=== PATIENT | male | born 1970 | race Caucasian/White ===

== ENCOUNTER 2017-02-28 22:50 | Emergency (ER) | payer OTHER ==
[~2017-02-28] VITALS: Ht 167.6 cm; Wt 70.0 kg
[~2017-02-28 22:50] MED LIST: CEPH500C3 PO; CLON-352 PO; SUBO2MIS SL
[2017-02-28 22:51] VITALS: BP 176/112; PULSE 116; RESP 16; TEMP 98.6; O2SAT 100
[2017-02-28] MEDS ORDERED: SUBO8MIS SL (23:07)
[2017-02-28] MEDS ORDERED: CLON0.3T PO (23:07)
--- NOTE | 2017-02-28 23:27 | PD ---
HPI Chief Complaint: Medical Clearance Time Seen by Provider: 23:18 Travel History International Travel<30 days: No Contact w/Intl Traveler<30days: No Traveled to known affect area: No History of Present Illness HPI 46-year-old male presents to the department for medical clearance to go into a detox facility. Patient recently went on a alcohol binge. He fell struck his head and was placed under Chan act. He did go to a detox facility and was discharged today. His father accompanies him and the family feels that is in his best interest to continue detox and get off Suboxone now. The patient states that he does want to do this however he is scared. They went to [facility] and they are saving him a bed but requested he come to emergency department or medical clearance. Patient denies suicidal homicidal ideations. He takes 8 mg of Suboxone in the morning and 4 mg at night. Denies any other illicit drug use currently. States that he has not consumed alcohol for 1 week , prior to his recent admission. He has no other symptoms to report. [facility] Past Medical History Hypertension: Yes Tetanus Vaccination: Unknown Influenza Vaccination: No Social History Alcohol Use: Yes (binges) Tobacco Use: No Substance Use: No Allergies-Medications (Allergen,Severity, Reaction): Coded Allergies: No Known Allergies (Unverified , 02/28/17) Reported Meds & Prescriptions Reported Meds & Active Scripts Active Reported Suboxone Sublingual Film (Buprenorphine-Naloxone Sublingual Film) 8-2 Mg Film 1 Film SL BID Unique ID number required: Clonidine (Clonidine HCl) 0.3 Mg Tab 0.3 Mg PO BID Review of Systems Except as stated in HPI: all other systems reviewed are Neg Physical Exam Narrative GENERAL: Well-nourished, very pleasant male patient, anxious, but in no acute distress. SKIN: Focused skin assessment warm/dry. HEAD: Atraumatic. Normocephalic. EYES: Pupils equal and round. No scleral icterus. No injection or drainage. ENT: No nasal bleeding or discharge. Mucous membranes pink and moist. NECK: Trachea midline. No JVD. CARDIOVASCULAR: Tachycardic rate and rhythm. No murmur appreciated. RESPIRATORY: No accessory muscle use. Clear to auscultation. Breath sounds equal bilaterally. GASTROINTESTINAL: Abdomen soft, non-tender, nondistended. Hepatic and splenic margins not palpable. MUSCULOSKELETAL: No obvious deformities. No clubbing. No cyanosis. No edema. NEUROLOGICAL: Awake and alert. No obvious cranial nerve deficits. Motor grossly within normal limits. Normal speech. Data Data Last Documented VS Vital Signs Date Time Temp Pulse Resp B/P (MAP) Pulse Ox O2 Delivery O2 Flow Rate FiO2 03/01/17 00:02 02/28/17 22:51 98.6 116 16 100 Room Air Orders Orders Complete Blood Count With Diff (02/28/17 23:18) Basic Metabolic Panel (Bmp) (02/28/17 23:18) Drug Screen, Random Urine (02/28/17 23:18) Alcohol (Ethanol) (02/28/17 23:18) Labs Laboratory Tests Test 02/28/17 23:20 White Blood Count 7.7 TH/MM3 Red Blood Count 4.20 MIL/MM3 Hemoglobin 14.5 GM/DL Hematocrit 41.0 % Mean Corpuscular Volume 97.5 FL Mean Corpuscular Hemoglobin 34.5 PG Mean Corpuscular Hemoglobin Concent 35.3 % Red Cell Distribution Width 17.2 % Platelet Count 160 TH/MM3 Mean Platelet Volume 9.1 FL Neutrophils (%) (Auto) 67.9 % Lymphocytes (%) (Auto) 19.3 % Monocytes (%) (Auto) 10.8 % Eosinophils (%) (Auto) 1.4 % Basophils (%) (Auto) 0.6 % Neutrophils # (Auto) 5.3 TH/MM3 Lymphocytes # (Auto) 1.5 TH/MM3 Monocytes # (Auto) 0.8 TH/MM3 Eosinophils # (Auto) 0.1 TH/MM3 Basophils # (Auto) 0.0 TH/MM3 CBC Comment DIFF FINAL Differential Comment Blood Urea Nitrogen 13 MG/DL Creatinine 0.94 MG/DL Random Glucose 115 MG/DL Calcium Level 9.3 MG/DL Sodium Level 140 MEQ/L Potassium Level 4.3 MEQ/L Chloride Level 102 MEQ/L Carbon Dioxide Level 31.8 MEQ/L Anion Gap 6 MEQ/L Estimat Glomerular Filtration Rate 87 ML/MIN Urine Opiates Screen NEG Urine Barbiturates Screen NEG Urine Amphetamines Screen NEG Urine Benzodiazepines Screen NEG Urine Cocaine Screen NEG Urine Cannabinoids Screen NEG Ethyl Alcohol Level LESS THAN 3 MG/DL MDM Medical Decision Making Medical Screen Exam Complete: Yes Emergency Medical Condition: Yes Medical Record Reviewed: Yes Differential Diagnosis Substance abuse versus dependence versus mood disorder versus personality disorder versus adjustment reaction disorder Narrative Course 46-year-old male presents to the emergency department for evaluation and medical clearance to go into a detox facility. Patient appears without distress. He is tachycardic and he does report being anxious and scared. Lab work is complete, reviewed, and without acute concern. Patient is medically cleared to be discharged. His father will take him to detox at this time. Diagnosis Primary Impression: Substance dependence Referrals: [facility] (Out patient) [facility] Instructions: General Instructions, Medical Clearance for Substance Abuse Treatment (ED) Additional Instructions: You have been medically cleared for treatment Follow-up with primary care provider Return immediately with any acute worsening symptoms Disposition: 01 DISCHARGE HOME Condition: Stable Zeinab Morel Feb 28, 2017 23:26
[2017-02-28 23:32] LABS: AUTOMATED NEUTROPHIL # 5.3 TH/MM3 (1.8-7.7); BASOPHIL % 0.6 % (0.0-2.0); EOSINOPHIL # 0.1 TH/MM3 (0-0.4); EOSINOPHIL % 1.4 % (0.0-4.0); HEMO FLAGS DIFF FINAL; LYMPH % 19.3 % (9.0-44.0); LYMPHOCYTE # 1.5 TH/MM3 (1.0-4.8); MEAN CELL VOLUME 97.5 FL (80.0-100.0); MEAN CORPUSCULAR HEMOGLOBIN 34.5 PG (27.0-34.0); MEAN CORPUSCULAR HGB CONC 35.3 % (32.0-36.0); MONO % 10.8 % (0.0-8.0); NEUT % 67.9 % (16.0-70.0); PLATELET COUNT 160 TH/MM3 (150-450); RED CELL DISTRIBUTION WIDTH 17.2 % (11.6-17.2); WHITE BLOOD COUNT 7.7 TH/MM3 (4.0-11.0)
[2017-02-28 23:46] LABS: ANION GAP 6 MEQ/L (5-15); BICARBONATE 31.8 MEQ/L (21.0-32.0); BLOOD UREA NITROGEN 13 MG/DL (7-18); CHLORIDE 102 MEQ/L (98-107); GLOMERULAR FILTRATION RATE 87 ML/MIN (>89); POTASSIUM 4.3 MEQ/L (3.5-5.1); SODIUM (NA) 140 MEQ/L (136-145)
[2017-02-28 23:48] LABS: ALCOHOL LESS THAN 3 MG/DL (0-5)
== END 2017-03-01 00:02 | disposition home or self-care (01) ==
LOC: NEPK 22:50
DX: F19.20 Other psychoactive substance dependence, uncomplicated (principal)
CPT/HCPCS: 80048; 80307; 85025; 99283

== ENCOUNTER 2018-04-08 13:14 | Observation (INO) ==
[2018-04-08] MEDS ORDERED: Sod Chloride 0.9% Inj 1,000 ML IV.SIG ONE (13:24)
[2018-04-08] MEDS ORDERED: Lidocaine 1%/Epinephrine 1:100,000 Inj 20 ML Vial INFILTRATN ONE (13:30)
--- NOTE | 2018-04-08 13:38 | ED ---
HPI General Chief Complaint: Psychiatric Symptoms Stated Complaint: Psych Eval/VCSO Time Seen by Provider: 04/08/18 13:18 Source: patient, EMS, RN notes reviewed and old records reviewed Mode of arrival: EMS Limitations: other (intoxicated) History of Present Illness HPI Narrative: 48-year-old male presents to the emergency department under Chan act by local police via EMS. Apparently, the patient has history of alcohol abuse. He was in the emergency department April 04, 2018 for alcohol abuse. At that time, he was not under Chan act and was discharged once he was sober. The patient is under Chan act today stating that he wanted to drink himself to . The patient denies any suicidal ideations to me. He does have a laceration to the chin. He does not remember falling last night. He does report drinking throughout the night. EMS states that he had a large bottle of vodka that was empty next to him. Apparently, patient's family found him this morning lying in bed, sleeping with laceration and intoxicated. Patient has history of hypertension. He is uncooperative during my exam does not want to be in the emergency department. He denies any pain. No neck pain or back pain. No chest pain or abdominal pain. He states his tetanus immunization has been within the past year. Moderate severity. He does report history of COPD. MD complaint: Reports suicidal ideation and other (alcohol abuse) Duration: constant History of same: Yes Relieving factors: none Exacerbating factors: alcohol Context: Reports recent alcohol abuse Associated psychiatric symptoms: Reports none Associated symptoms: Reports other (facial laceration) Treatments prior to arrival: Reports placed on mental health hold and physical restraints Related Data Home Medications Medication Instructions Recorded Confirmed clonidine HCl 04/06/18 Allergies Allergy/AdvReac Type Severity Reaction Status Date / Time No Known Allergies Allergy Uncoded 02/28/17 23:01 Review of Systems ROS: all other systems reviewed are negative [facility] Medical History Medical History HTN (hypertension) (Acute) Surgical history unknown (Acute) Social History Social History Substance History: Unable to Obtain Smoking Status: Refused to answer Tobacco Type: Cigarettes How Often Do You Have a Drink Containing Alcohol: 4 or more times a week Recent Travel in [facility] within the Last 8 Weeks: No Recent Out of Country Travel within the Last 8 Weeks: No Immunization History Tetanus Immunization: <5 Years Exam Narrative Exam Narrative: GENERAL: Well-nourished, well-developed male patient, afebrile. Patient arrives on backboard with c-collar in place and soft wrist restraints SKIN: Focused skin assessment warm/dry. Patient has a 3 cm laceration to the chin; patient also has superficial laceration to the right forehead that appears old HEAD: Normocephalic. EYES: No scleral icterus. No injection or drainage. NECK: Supple, trachea midline. No JVD or lymphadenopathy. CARDIOVASCULAR: Regular rate and rhythm without murmurs, gallops, or rubs. RESPIRATORY: Breath sounds equal bilaterally. No accessory muscle use. Lung sounds with expiratory wheezes GASTROINTESTINAL: Abdomen soft, non-tender, nondistended. MUSCULOSKELETAL: No cyanosis, or edema. BACK: Nontender without obvious deformity. No CVA tenderness. No midline spinal tenderness to palpation. C-collar remains in place Procedures Laceration Laceration 1: Site: face Side (If applicable): right Size (cm): 3 Description: linear Depth: simple, single layer Anesthetic used: lidocaine 1% Anesthesia technique:: local infiltration Pre-repair:: wound explored Skin layer closed with: prolene Size (cm): 5-0 Number of sutures:: 5 Technique:: simple, interrupted Course Initial Documented Vital Signs Pulse Rate 81 04/08/18 13:24 Respiratory Rate 25 H 04/08/18 13:24 Blood Pressure 178/100 H 04/08/18 13:24 Pulse Oximetry 98 04/08/18 13:24 Last Documented Vital Signs Pulse Rate 88 04/08/18 22:31 Respiratory Rate 20 04/08/18 22:31 Blood Pressure 136/87 04/08/18 22:31 Pulse Oximetry 93 L 04/08/18 22:31 Medical Decision Making [facility] Narrative Medical decision making narrative: 48-year-old male presents to the emergency department under Chan act by local police via EMS. He does have a facial laceration on exam. He denies pain. He is uncooperative. According to review of chart, he was here on April 04, 2018 for alcohol abuse. IV access obtained. CBC, CMP, TSH, alcohol level, salicylate level, acetaminophen level, urine drug screen are ordered and pending. CT of the head, facial bones, cervical spine are ordered and pending. Patient is given DuoNeb x1 for expiratory wheezes, Ativan 1 mg IV for agitation, normal saline 1 L IV bolus. CBC shows no acute abnormality. CMP shows protein corrected calcium is 7.2, elevated LFTs with AST of 432, ALT 137, alkaline phosphatase 243, consistent with previous labs. TSH is 0.4-3. Alcohol level is 454. Salicylate level is less than 1.7. Acetaminophen level is less than 2.0. UDS is negative. CT of the head shows no acute intracranial finding. CT of the facial bones shows no evidence of fracture. CT of the cervical spine shows no evidence of fracture. Patient is given calcium gluconate 1 g IV for hypocalcemia. Patient remains on oxygen at 4 L O2 nasal cannula. If patient is taken to room air, his oxygen saturation decreases to 8085%. Chest x-ray is ordered and shows no evidence of acute cardiopulmonary disease. Patient is given DuoNeb x2. However, patient's oxygen saturation continues to drop on room air. Patient will be admitted for observation for COPD exacerbation, alcohol intoxication, Chan act. Medical Screen Exam Complete: Yes Emergency Medical Condition: Yes Differential Diagnosis Differential Diagnosis: alcohol intoxication vs. intracranial hemorrhage vs facial laceration vs. depression vs. anxiety vs. suicidal ideation Medical Records Medical records reviewed: Yes I reviewed the patient's medical records. Patient was here on April 04, 2018 for alcohol abuse Lab Data Result diagrams: 04/08/18 13:47 04/08/18 13:47 Lab Results 04/08/18 04/08/18 04/08/18 Range/Units 13:47 13:47 13:47 WBC 3.5 L (4.0-11.0) th/mm3 RBC 6.00 H (4.50-5.90) mil/mm3 Hgb 16.2 (13.0-17.0) gm/dL Hct 48.1 (39.0-51.0) % MCV 80.2 (80.0-100.0) fL MCH 27.0 (27.0-34.0) pg MCHC 33.6 (32.0-36.0) % RDW 21.7 H (11.6-17.2) % Plt Count 70 L (150-450) th/mm3 MPV 8.3 (7.0-11.0) fL Prelim Diff (Auto) Slide review pending Neut % (Auto) 46.2 (16.0-70.0) % Lymph % (Auto) 42.2 (9.0-44.0) % Burnett % (Auto) 9.4 H (0.0-8.0) % Eos % (Auto) 1.4 (0.0-4.0) % Baso % (Auto) 0.8 (0.0-2.0) % Neut # (Auto) 1.6 L (1.8-7.7) th/mm3 Lymph # (Auto) 1.5 (1.0-4.8) th/mm3 Burnett # (Auto) 0.3 (0.0-0.9) th/mm3 Eos # (Auto) 0.0 (0.0-0.4) th/mm3 Baso # (Auto) 0.0 (0.0-0.2) th/mm3 WBC Differential . Diff Scan Auto diff confirmed Differential Comment . Platelet Estimate Low L (Normal) Platelet Morphology Enlarged H (Normal) Sodium 140 (136-145) meq/L Potassium 3.9 (3.5-5.1) meq/L Chloride 105 D (98-107) meq/L Carbon Dioxide 26.5 (21.0-32.0) meq/L Anion Gap 9 (5-15) meq/L BUN 5 L (7-18) mg/dL Creatinine 0.53 L (0.60-1.30) mg/dL Estimated GFR Greater than 89 (>89) mL/min Random Glucose 85 (74-106) mg/dL Calcium 7.1 L* D (8.5-10.1) mg/dL Prot Corrected Calcium 7.2 L* (8.5-10.1) mg/dL Magnesium 1.4 L (1.5-2.5) mg/dL Total Bilirubin 0.7 (0.2-1.0) mg/dL AST 432 H (15-37) U/L ALT 137 H (12-78) U/L Alkaline Phosphatase 243 H (45-117) U/L Total Protein 7.0 D (6.4-8.2) g/dL Albumin 2.8 L (3.4-5.0) g/dL TSH 0.423 (0.358-3.740) uIU/mL Salicylates Less than 1.7 L (2.8-20.0) mg/dL Urine Opiates Screen (Neg) Acetaminophen Less than 2.0 L (10.0-30.0) mcg/mL Ur Barbiturates Screen (Neg) Ur Amphetamines Screen (Neg) U Benzodiazepines Scrn (Neg) Urine Cocaine Screen (Neg) U Cannabinoids Screen (Neg) Serum Alcohol 454 H (0-5) mg/dL 04/08/18 Range/Units 13:47 WBC (4.0-11.0) th/mm3 RBC (4.50-5.90) mil/mm3 Hgb (13.0-17.0) gm/dL Hct (39.0-51.0) % MCV (80.0-100.0) fL MCH (27.0-34.0) pg MCHC (32.0-36.0) % RDW (11.6-17.2) % Plt Count (150-450) th/mm3 MPV (7.0-11.0) fL Prelim Diff (Auto) Neut % (Auto) (16.0-70.0) % Lymph % (Auto) (9.0-44.0) % Burnett % (Auto) (0.0-8.0) % Eos % (Auto) (0.0-4.0) % Baso % (Auto) (0.0-2.0) % Neut # (Auto) (1.8-7.7) th/mm3 Lymph # (Auto) (1.0-4.8) th/mm3 Burnett # (Auto) (0.0-0.9) th/mm3 Eos # (Auto) (0.0-0.4) th/mm3 Baso # (Auto) (0.0-0.2) th/mm3 WBC Differential Diff Scan Differential Comment Platelet Estimate (Normal) Platelet Morphology (Normal) Sodium (136-145) meq/L Potassium (3.5-5.1) meq/L Chloride (98-107) meq/L Carbon Dioxide (21.0-32.0) meq/L Anion Gap (5-15) meq/L BUN (7-18) mg/dL Creatinine (0.60-1.30) mg/dL Estimated GFR (>89) mL/min Random Glucose (74-106) mg/dL Calcium (8.5-10.1) mg/dL Prot Corrected Calcium (8.5-10.1) mg/dL Magnesium (1.5-2.5) mg/dL Total Bilirubin (0.2-1.0) mg/dL AST (15-37) U/L ALT (12-78) U/L Alkaline Phosphatase (45-117) U/L Total Protein (6.4-8.2) g/dL Albumin (3.4-5.0) g/dL TSH (0.358-3.740) uIU/mL Salicylates (2.8-20.0) mg/dL Urine Opiates Screen Neg (Neg) Acetaminophen (10.0-30.0) mcg/mL Ur Barbiturates Screen Neg (Neg) Ur Amphetamines Screen Neg (Neg) U Benzodiazepines Scrn Neg (Neg) Urine Cocaine Screen Neg (Neg) U Cannabinoids Screen Neg (Neg) Serum Alcohol (0-5) mg/dL Imaging Data Radiologist's impression: Cervical Spine CT 04/08/18 13:23 CONCLUSION: 1. Postsurgical findings C6-7. 2. No evidence fracture. Face CT 04/08/18 13:23 CONCLUSION: No evidence of fracture. Head CT 04/08/18 13:23 CONCLUSION: No acute intracranial findings. . Chest X-Ray 04/08/18 19:30 CONCLUSION: No evidence of acute cardiopulmonary disease. Discharge Plan Discharge Disposition Patient Disposition: 30 Still Patient Discharge Details Diagnosis: Alcohol intoxication, Acute exacerbation of chronic obstructive pulmonary disease (COPD) Physicians Team ED Provider: Manuela Graham ED Midlevel Provider: Lizbet Fragoso Primary Care Provider: Primary Care Amara Gomez Rxs /Orders / Referrals /Forms Prescriptions: No Action clonidine HCl 0.2 mg Tablet RF: 0 Status ED Status: Admitted Observation Patient
[2018-04-08] MEDS ORDERED: Lidocaine 1%/Epinephrine 1:100,000 Inj 30 ML Vial ONE (14:05)
[2018-04-08 14:10] LABS: Baso % (Auto) 0.8 % (0.0-2.0); Eos % (Auto) 1.4 % (0.0-4.0); Hematocrit 48.1 % (39.0-51.0); Hemoglobin 16.2 gm/dL (13.0-17.0); Lymph # (Auto) 1.5 th/mm3 (1.0-4.8); Lymph % (Auto) 42.2 % (9.0-44.0); Mean Corpuscular HGB Conc 33.6 % (32.0-36.0); Mean Corpuscular Volume 80.2 fL (80.0-100.0); Mean Platelet Volume 8.3 fL (7.0-11.0); Mono # (Auto) 0.3 th/mm3 (0.0-0.9); Mono % (Auto) 9.4 % (0.0-8.0); Neut # (Auto) 1.6 th/mm3 (1.8-7.7); Neut % (Auto) 46.2 % (16.0-70.0); Platelet Count 70 th/mm3 (150-450); Red Cell Distribution Width 21.7 % (11.6-17.2); White Blood Count 3.5 th/mm3 (4.0-11.0)
[2018-04-08 14:23] LABS: Amphetamine Screen,Urine Neg (Neg); Barbiturate Screen,Urine Neg (Neg); Cannabinoid Screen,Urine Neg (Neg); Cocaine Screen,Urine Neg (Neg)
[2018-04-08 14:32] LABS: Opiate Screen,Urine Neg (Neg)
[2018-04-08 15:03] LABS: Alanine Aminotransferase 137 U/L (12-78); Albumin 2.8 g/dL (3.4-5.0); Alkaline Phosphatase 243 U/L (45-117); Anion Gap 9 meq/L (5-15); Aspartate Aminotransferase 432 U/L (15-37); Blood Urea Nitrogen 5 mg/dL (7-18); Calcium 7.1 mg/dL (8.5-10.1); Carbon Dioxide 26.5 meq/L (21.0-32.0); Chloride 105 meq/L (98-107); Glomerular Filtration Rate Greater Than 89 mL/min (>89); Glucose,Random 85 mg/dL (74-106); Magnesium 1.4 mg/dL (1.5-2.5); Potassium 3.9 meq/L (3.5-5.1); Sodium 140 meq/L (136-145); Thyroid Stimulating Hormone 0.423 uIU/mL (0.358-3.740)
--- NOTE | 2018-04-08 15:10 | CT ---
EXAM DATE: 04/08/2018 2:46 PM EDT AGE/SEX: 48 years / Male INDICATIONS: Fall. Pain. CLINICAL DATA: This is the patient's initial encounter. Patient reports that signs and symptoms have been present for 1 day and indicates a pain score of Nonresponsive. MEDICAL/SURGICAL HISTORY: Hypertension. None. RADIATION DOSE: 21.96 CTDI (mGy) COMPARISON: No prior exams available for comparison. TECHNIQUE: Contiguous images in the axial and coronal planes were obtained using helical multirow de tector technique. Using automated exposure control and adjustment of the mA and/or kV according to p atient size, radiation dose was kept as low as reasonably achievable to obtain optimal diagnostic michele lity images. DICOM format image data is available electronically for review and comparison. FINDINGS: Orbits: Within normal limits. No evidence fracture. Globes and extraocular muscles are symmetric Nasal Bone: The nasal bone and maxillary spine are intact. Zygomatic Arches: Symmetric without evidence of fracture. Sinuses: Mild mucosal thickening left maxillary sinus and bilateral ethmoid sinuses. Nasal Cavity: The nasal septum is intact and midline. Soft Tissues: Soft tissue contusion or laceration in the right submandibular region. Intracranial: No intracranial air seen. CONCLUSION: No evidence of fracture. Electronically signed by: Yovany Garcia MD 04/08/2018 3:09 PM EDT
[2018-04-08 15:13] LABS: Alcohol 454 mg/dL (0-5)
--- NOTE | 2018-04-08 15:13 | CT ---
EXAM DATE: 04/08/2018 2:50 PM EDT AGE/SEX: 48 years / Male INDICATIONS: Pain. Fall. CLINICAL DATA: This is the patient's initial encounter. Patient reports that signs and symptoms have been present for 1 day and indicates a pain score of Nonresponsive. MEDICAL/SURGICAL HISTORY: Hypertension. None. RADIATION DOSE: 17.41 CTDI (mGy) COMPARISON: No prior exams available for comparison. TECHNIQUE: Contiguous axial images were obtained using helical multirow detector technique. The vol umetric data was post-processed with multiplanar reconstruction in oblique axial, sagittal, and coron al planes. Using automated exposure control and adjustment of the mA and/or kV according to patient s ize, radiation dose was kept as low as reasonably achievable to obtain optimal diagnostic quality alexis ges. DICOM format image data is available electronically for review and comparison. FINDINGS: Vertebrae: Normal vertebral body height. No evidence fracture. Anterior fusion hardware at C6-7. The re is evidence of bone bridging between the vertebral bodies at this level. Alignment: Normal. No subluxation. C2-3: The bony spinal canal is normal in size. No evidence of disc bulge or herniation. The neural foramina are bilaterally patent. C3-4: The bony spinal canal is normal in size. No evidence of disc bulge or herniation. The neural foramina are bilaterally patent. C4-5: The bony spinal canal is normal in size. No evidence of disc bulge or herniation. The neural foramina are bilaterally patent. C5-6: The bony spinal canal is normal in size. No evidence of disc bulge or herniation. The neural foramina are bilaterally patent. C6-7: Postsurgical findings with anterior fusion hardware. Bone bridging between the vertebral dipika s. C7-T1: The bony spinal canal is normal in size. No evidence of disc bulge or herniation. The neura l foramina are bilaterally patent. CONCLUSION: 1. Postsurgical findings C6-7. 2. No evidence fracture. Electronically signed by: Yovany Garcia MD 04/08/2018 3:11 PM EDT
--- NOTE | 2018-04-08 15:14 | CT ---
EXAM DATE: 04/08/2018 2:44 PM EDT AGE/SEX: 48 years / Male INDICATIONS: Fall. Pain. CLINICAL DATA: This is the patient's initial encounter. Patient reports that signs and symptoms have been present for 1 day and indicates a pain score of Nonresponsive. MEDICAL/SURGICAL HISTORY: Hypertension. None. RADIATION DOSE: 56.35 CTDI (mGy) COMPARISON: No prior exams available for comparison. TECHNIQUE: CT of the head without contrast. Using automated exposure control and adjustment of the mA and/or kV according to patient size, radiation dose was kept as low as reasonably achievable to ob tain optimal diagnostic quality images. DICOM format image data is available electronically for revi ew and comparison. FINDINGS: Cerebrum: The ventricles are normal for age. No evidence of midline shift, mass lesion, hemorrhage or acute infarction. No extraaxial fluid collections are seen. Posterior Fossa: The cerebellum and brainstem are intact. The 4th ventricle is midline. The cerebe llopontine angle is unremarkable. Extracranial: The visualized portion of the orbits is intact. Skull: The calvaria is intact. No evidence of skull fracture. CONCLUSION: No acute intracranial findings. . Electronically signed by: Yovany Garcia MD 04/08/2018 3:12 PM EDT
[2018-04-08] MEDS ORDERED: Calcium Gluconate Inj 1 GM in Dextrose 5% in Water Inj 100 ML IV.SIG ONE ×2 (15:21)
--- NOTE | 2018-04-08 19:56 | XR ---
EXAM DATE: 04/08/2018 7:47 PM EDT AGE/SEX: 48 years / Male INDICATIONS: Shortness of breath. CLINICAL DATA: This is the patient's initial encounter. Patient reports that signs and symptoms have been present for 1 day and indicates a pain score of 0/10. MEDICAL/SURGICAL HISTORY: Chronic obstructive pulmonary disease. Hypertension. None. COMPARISON: No prior exams available for comparison. FINDINGS: A single AP view of the chest demonstrates the lungs to be symmetrically aerated without evidence of mass, infiltrate or effusion. The cardiomediastinal contours are unremarkable. Osseous structures a re intact. CONCLUSION: No evidence of acute cardiopulmonary disease. Electronically signed by: Mohan Sahni MD 04/08/2018 7:55 PM EDT
[2018-04-08] MEDS ORDERED: MethylPREDNISolone Sod Succinate Inj 125 MG/2 ML Vial IV.PUSH ONE (22:35)
--- NOTE | 2018-04-08 22:40 | P.HPFP ---
History of Present Illness Primary Care Physician: No Primary Care Physician <Franklin Bhatti L - 04/09/18 13:23> No Primary Care Physician <Shruti Solis T - 04/09/18 01:27 EDT> History of Present Illness: 48-year-old male with a history of COPD and alcohol abuse presents the ED via EMS under Chan act by police. According to ED's note, patient was found by family lying in bed next to empty, large bottle of vodka. Patient also had laceration under her right chin. Does not remember falling or anything at all from last night. Reports that he has blackouts when he drinks. Patient was recently here on April 04 for alcohol abuse. Patient was not under Chan acted at that time and was discharged when sober. Patient relapsed on alcohol one month ago, due to his sponsor relapsing. He was drinking a gallon of vodka a day. He was sober 8 months ago after going to rehab (sober living). He had began drinking heavily 3 years ago ( one gallon of vodka a day) after his . He has been drinking heavily for the past day. He also does heroin. Last time he did heroin was 2 days ago, shoots up his L arm. Last time tested for HIV and Hep C not that long ago and was negative. He does not remember how he got to the emergency room. Doesn't remember what he did yesterday. No suicidal or homicidal thoughts. Has been having CP and problems breathing. Has been having a productive cough, mucousy in color . Confirms chills. No nausea or vomiting. Has not eaten in 3 weeks. Abdominal pain for the past 2 weeks in the lower quadrants. No burning with urination. No abnormal bowel moments. Last drink last night. Confirms seizures and tremors from withdrawing. Interested in going to rehab after this. Patient denies suicidal ideation. PMH: COPD, Alcohol Abuse, hypertension PSH: Cervical surgery (plate in neck). Allergies: None. Meds: Clonidine. FH: GM, Mom, Brother have diabetes. Social: 6 kids ( 4 girls/2 boys). Smokes 2 ppd for 20 years. Not on Oxygen. Confirms Heroin Use. Drinks one gallon of vodka a day. Lives in [facility] in a trailer. 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 <Shruti Solis - 04/09/18 01:46 EDT> - Diagnosis (1) Alcohol intoxication (2) Acute exacerbation of chronic obstructive pulmonary disease (COPD) (3) Laceration of chin (4) Hypertension (5) Nutrition, metabolism, and development symptoms <Shruti Solis - 04/09/18 01:35 EDT> (1) Alcohol withdrawal (2) Alcohol intoxication (3) Suicidal ideation (4) Acquired pancytopenia (5) Acute exacerbation of chronic obstructive pulmonary disease (COPD) (6) Laceration of chin (7) Hypertension (8) Nutrition, metabolism, and development symptoms <Franklin Bhatti - 04/09/18 13:23> Review of Systems All other systems reviewed negative except as stated in HPI <Shruti Solis - 04/08/18 23:03> PMFSH - History History Provided By: [employer] / EMT <Shruti Solis - 04/08/18 22:40> - Medical History Medical History: Medical History (Last Updated 04/09/18 @ 01:29 EDT by Shruti Solis MD, R2) COPD (chronic obstructive pulmonary disease) HTN (hypertension) Surgical history unknown <Franklin Bhatti - 04/09/18 13:23> Medical History (Last Updated 04/09/18 @ 01:29 EDT by Shruti Solis MD, R2) COPD (chronic obstructive pulmonary disease) HTN (hypertension) Surgical history unknown <Shruti Solis - 04/09/18 01:34 EDT> - Surgical History Surgical History: Surgical History (Last Updated 04/09/18 @ 01:29 EDT by Shruti Solis MD, R2) No pertinent past surgical history <Franklin Bhatti - 04/09/18 13:23> Surgical History (Last Updated 04/09/18 @ 01:29 EDT by Shruti Solis MD, R2) No pertinent past surgical history <Shruti Solis - 04/09/18 01:34 EDT> - Family History Family History: Family History (Last Updated 04/09/18 @ 01:29 EDT by Shruti Solis MD, R2) Other Diabetes <Franklin Bhatti 04/09/18 13:23> Family History (Last Updated 04/09/18 @ 01:29 EDT by Shruti Solis MD, R2) Other Diabetes <Shruti Solis - 04/09/18 01:34 EDT> - Social History I have reviewed the patient's Social History: Yes <Shruti Solis - 01:34 EDT> - Tobacco History Smoking Status: Refused to answer <Shruti Solis - 04/08/18 22:40> Tobacco Type: Cigarettes <Shruti Solis - 04/08/18 22:40> - Alcohol History How Often Do You Have a Drink Containing Alcohol: 4 or more times a week <Shruti Solis - 04/08/18 22:40> - Substance Use History Substance History: Unable to Obtain <Shruti Solis 04/08/18 22:40> - Substance Use Type Heroin Status: Active <Shruti Solis - 04/09/18 01:27 EDT> Route Used: Intravenously <Shruti Solis 04/09/18 01:27 EDT> Reason for Use: Feels Good <Shruti Solis - 04/09/18 01:27 EDT> - Travel History Recent Travel in the [place] Within the Last 8 Weeks: No <Shruti Solis 04/08 22:40> Recent Travel Out of the Country Within the Last 8 Weeks: No <Shruti Solis - 04/08/18 22:40> - Immunization History Tetanus Immunization: <5 Years <Shruti Solis 04/08/18 22:40> Medications and Allergies Allergies Allergy/AdvReac Type Severity Reaction Status Date / Time No Known Allergies Allergy Uncoded 02/28/17 23:01 <Franklin Bhatti - 04/09/18 13:23> Home Medications Medication Instructions Recorded Confirmed Type clonidine HCl 04/06/18 History <Franklin Bhatti 04/09/18 13:23> Active Medications: Active Medications Albuterol (Duoneb Neb (Phil)) 1 ampul NEB Q6HR WHILE AWAKE NEB PHIL Last Admin: 04/09/18 13:04 Dose: 1 ampul Azithromycin (Zithromax) 250 mg PO DAILY PHIL Last Admin: 04/09/18 10:15 Dose: 250 mg Clonidine HCl (Catapres) 0.2 mg PO DAILY [facility] Last Admin: 04/09/18 10:16 Dose: 0.2 mg Flumazenil (Romazecon Inj) 0.2 mg IV.PUSH Q1M PRN PRN Reason: OVERSEDATION Folic Acid (Folic Acid) 1 mg PO DAILY [facility] Stop: 04/14/18 08:59 Last Admin: 04/09/18 10:15 Dose: 1 mg Haloperidol Lactate (Haldol Inj) 1 mg IV.PUSH Q15M PRN PRN Reason: for severe agitation Lorazepam (Ativan) 1 mg PO Q4H PRN PRN Reason: for CIWA 8-10 Lorazepam (Ativan) 2 mg PO Q2H PRN PRN Reason: for CIWA 11-14 Last Admin: 04/09/18 06:55 Dose: 2 mg Lorazepam (Ativan Inj) 2 mg IV.PUSH Q1H PRN PRN Reason: for CIWA 15-20 Lorazepam (Ativan Inj) 2 mg IV.PUSH Q15M PRN PRN Reason: for CIWA > 20 Lorazepam (Ativan Inj) 1 mg IV.PUSH Q4H PRN PRN Reason: for CIWA 8-10 Last Admin: 04/08/18 23:26 Dose: 1 mg Lorazepam (Ativan Inj) 2 mg IV.PUSH Q2H PRN PRN Reason: for CIWA 11-14 Multivitamins/Minerals (Theragran-M) 1 tab PO DAILY [facility] Stop: 04/14/18 08:59 Last Admin: 04/09/18 10:15 Dose: 1 tab Prednisone (Deltasone) 40 mg PO DAILY [facility] Last Admin: 04/09/18 10:15 Dose: 40 mg Sodium Chloride (Ns Flush) 2 ml IV.FLUSH BID [facility] Last Admin: 04/09/18 10:16 Dose: 2 ml Sodium Chloride (Ns Flush) 2 ml IV.FLUSH PRN PRN PRN Reason: FLUSH AFTER USING IV ACCESS Thiamine HCl (Vitamin B1) 100 mg PO DAILY [facility] Last Admin: 04/09/18 10:16 Dose: 100 mg <Franklin Bhatti L - 04/09/18 13:23> Exam Vital signs: Vital Signs 04/08/18 17:06 04/08/18 20:24 11/03/18 20:34 Temperature Pulse Rate 78 83 88 Respiratory Rate 14 22 22 Blood Pressure 133/90 Pulse Oximetry 98 95 04/08/18 21:00 04/08/18 21:02 04/08/18 22:31 Temperature Pulse Rate 77 80 88 Respiratory Rate 14 18 20 Blood Pressure 136/87 136/87 Pulse Oximetry 85 L 94 L 93 L 04/09/18 00:00 04/09/18 04:00 04/09/18 07:38 Temperature 98.8 F 98.3 F Pulse Rate 89 73 88 Respiratory Rate 18 18 22 Blood Pressure 123/77 164/80 H Pulse Oximetry 95 97 91 L 04/09/18 08:00 04/09/18 11:47 04/09/18 13:05 Temperature 98.5 F 98.5 F Pulse Rate 75 73 86 Respiratory Rate 16 16 20 Blood Pressure 171/95 H 160/95 H Pulse Oximetry 92 L 94 L Intake & Output 04/08/18 04/09/18 04/09/18 19:59 06:59 18:59 Intake Total Output Total Balance Weight Intake: IV Calcium Gluconate Inj 1 GM In D5W Inj 100 ML @ 110 mls/hr IV. SIG ONCE ONE Rx#:[id number] NS Inj 1,000 ML @ Wide Open IV. SIG BOLUS ONE Rx#:[id number] Oral Output: Urine Other: # Voids Weight On Admission <YoungFranklin L - 04/09/18 13:23> Vital Signs 04/08/18 13:24 04/08/18 13:49 04/08/18 17:06 Pulse Rate 81 72 78 Respiratory Rate 25 H 12 14 Blood Pressure 178/100 H 133/90 Pulse Oximetry 98 98 04/08/18 20:24 04/08/18 20:34 04/08/18 21:00 Pulse Rate 83 88 77 Respiratory Rate 22 22 14 Blood Pressure 136/87 Pulse Oximetry 95 85 L 04/08/18 21:02 04/08/18 22:31 Pulse Rate 80 88 Respiratory Rate 18 20 Blood Pressure 136/87 Pulse Oximetry 94 L 93 L Intake & Output 04/08/18 04/08/18 04/09/18 06:59 18:59 05:59 Intake Total 1110 / 1110 Balance 1110 / 1110 Weight 72.575 kg Intake: IV 1110 / 1110 Calcium Gluconate Inj 1 GM In 110 / 110 D5W Inj 100 ML @ 110 mls/hr IV. SIG ONCE ONE Rx#:[id number] NS Inj 1,000 ML @ Wide Open IV. 1000 / 1000 SIG BOLUS ONE Rx#:[id number] <Shruti Solis T - 04/08/18 22:40> Narrative: General: Disheveled, unpleasant male in no acute distress Skin: 3 cm laceration under right chin, [address], bloodstains on fingers HEENT: Normocephalic, atraumatic, PERRLA, no lymphadenopathy, throat clear Cardio: Regular rate and rhythm, no murmurs rubs or gallops Pulmonary: Moderate wheezing throughout all lung perry Abdomen: Soft, nontender, nondistended, positive bowel sounds, no guarding, no rebound Extremities: No cyanosis or edema Neuro: Alert and oriented x3 <Shruti Solis T - 04/09/18 01:34 EDT> Results - Labs Result diagrams: 04/09/18 09:15 04/09/18 09:25 <Franklin Bhatti L - 04/09/18 13:23> Abnormal lab results 04/08/18 04/08/18 04/08/18 Range/Units 13:47 13:47 13:47 WBC 3.5 L (4.0-11.0) th/mm3 RBC 6.00 H (4.50-5.90) mil/mm3 Hct (39.0-51.0) % MCV (80.0-100.0) fL RDW 21.7 H (11.6-17.2) % Plt Count 70 L (150-450) th/mm3 Neut % (Auto) (16.0-70.0) % [place] % (Auto) 9.4 H (0.0-8.0) % Neut # (Auto) 1.6 L (1.8-7.7) th/mm3 Lymph # (Auto) (1.0-4.8) th/mm3 Seg Neuts % (Manual) (16-70) % Lymphocytes % (Manual) (9-44) % Abs Neuts (Manual) (1.8-7.7) th/mm3 Platelet Estimate Low L (Normal) Platelet Morphology Enlarged H (Normal) Sodium (136-145) meq/L Chloride (98-107) meq/L BUN 5 L (7-18) mg/dL Creatinine 0.53 L (0.60-1.30) mg/dL Random Glucose (74-106) mg/dL Calcium 7.1 L* D (8.5-10.1) mg/dL Prot Corrected Calcium 7.2 L* (8.5-10.1) mg/dL Magnesium 1.4 L (1.5-2.5) mg/dL Total Bilirubin (0.2-1.0) mg/dL Direct Bilirubin (0.0-0.2) mg/dL AST 432 H (15-37) U/L ALT 137 H (12-78) U/L Alkaline Phosphatase 243 H (45-117) U/L Albumin 2.8 L (3.4-5.0) g/dL Salicylates Less than 1.7 L (2.8-20.0) mg/dL Acetaminophen Less than 2.0 L (10.0-30.0) mcg/mL Serum Alcohol 454 H (0-5) mg/dL 04/09/18 04/09/18 Range/Units 09:15 09:25 WBC 1.6 L D (4.0-11.0) th/mm3 RBC (4.50-5.90) mil/mm3 Hct 38.6 L (39.0-51.0) % MCV 79.4 L (80.0-100.0) fL RDW 21.4 H (11.6-17.2) % Plt Count 58 L (150-450) th/mm3 Neut % (Auto) 79.5 H (16.0-70.0) % [place] % (Auto) (0.0-8.0) % Neut # (Auto) 1.3 L (1.8-7.7) th/mm3 Lymph # (Auto) 0.2 L (1.0-4.8) th/mm3 Seg Neuts % (Manual) 86 H (16-70) % Lymphocytes % (Manual) 6 L (9-44) % Abs Neuts (Manual) 1.4 L (1.8-7.7) th/mm3 Platelet Estimate Low L (Normal) Platelet Morphology Enlarged H (Normal) Sodium 132 L (136-145) meq/L Chloride 93 L D (98-107) meq/L BUN (7-18) mg/dL Creatinine (0.60-1.30) mg/dL Random Glucose 174 H (74-106) mg/dL Calcium (8.5-10.1) mg/dL Prot Corrected Calcium (8.5-10.1) mg/dL Magnesium (1.5-2.5) mg/dL Total Bilirubin 1.2 H (0.2-1.0) mg/dL Direct Bilirubin 0.5 H (0.0-0.2) mg/dL AST 257 H (15-37) U/L ALT 121 H (12-78) U/L Alkaline Phosphatase 272 H (45-117) U/L Albumin 3.2 L (3.4-5.0) g/dL Salicylates (2.8-20.0) mg/dL Acetaminophen (10.0-30.0) mcg/mL Serum Alcohol (0-5) mg/dL Short CBC 04/08/18 04/09/18 Range/Units 13:47 09:15 WBC 3.5 L 1.6 L D (4.0-11.0) th/mm3 Hgb 16.2 13.1 D (13.0-17.0) gm/dL Hct 48.1 38.6 L (39.0-51.0) % Plt Count 70 L 58 L (150-450) th/mm3 BMP 04/08/18 04/09/18 13:47 09:25 Sodium 140 132 L Potassium 3.9 4.0 Chloride 105 D 93 L D Carbon Dioxide 26.5 27.1 BUN 5 L 7 Creatinine 0.53 L 0.72 Calcium 7.1 L* D 8.9 D Liver Function 04/08/18 04/09/18 Range/Units 13:47 09:25 Total Bilirubin 0.7 1.2 H (0.2-1.0) mg/dL Direct Bilirubin 0.5 H (0.0-0.2) mg/dL AST 432 H 257 H (15-37) U/L ALT 137 H 121 H (12-78) U/L Alkaline Phosphatase 243 H 272 H (45-117) U/L Albumin 2.8 L 3.2 L (3.4-5.0) g/dL <Franklin Bhatti L - 04/09/18 13:23> Abnormal lab results 04/08/18 04/08/18 04/08/18 Range/Units 13:47 13:47 13:47 WBC 3.5 L (4.0-11.0) th/mm3 RBC 6.00 H (4.50-5.90) mil/mm3 RDW 21.7 H (11.6-17.2) % Plt Count 70 L (150-450) th/mm3 [place] % (Auto) 9.4 H (0.0-8.0) % Neut # (Auto) 1.6 L (1.8-7.7) th/mm3 Platelet Estimate Low L (Normal) Platelet Morphology Enlarged H (Normal) BUN 5 L (7-18) mg/dL Creatinine 0.53 L (0.60-1.30) mg/dL Calcium 7.1 L* D (8.5-10.1) mg/dL Prot Corrected Calcium 7.2 L* (8.5-10.1) mg/dL Magnesium 1.4 L (1.5-2.5) mg/dL AST 432 H (15-37) U/L ALT 137 H (12-78) U/L Alkaline Phosphatase 243 H (45-117) U/L Albumin 2.8 L (3.4-5.0) g/dL Salicylates Less than 1.7 L (2.8-20.0) mg/dL Acetaminophen Less than 2.0 L (10.0-30.0) mcg/mL Serum Alcohol 454 H (0-5) mg/dL Short CBC 04/08/18 Range/Units 13:47 WBC 3.5 L (4.0-11.0) th/mm3 Hgb 16.2 (13.0-17.0) gm/dL Hct 48.1 (39.0-51.0) % Plt Count 70 L (150-450) th/mm3 BMP 04/08/18 13:47 Sodium 140 Potassium 3.9 Chloride 105 D Carbon Dioxide 26.5 BUN 5 L Creatinine 0.53 L Calcium 7.1 L* D Liver Function 04/08/18 Range/Units 13:47 Total Bilirubin 0.7 (0.2-1.0) mg/dL AST 432 H (15-37) U/L ALT 137 H (12-78) U/L Alkaline Phosphatase 243 H (45-117) U/L Albumin 2.8 L (3.4-5.0) g/dL <Shruti Solis - 04/08/18 22:40> - Imaging Impressions Cervical Spine CT 04/08/18 13:23 CONCLUSION: 1. Postsurgical findings C6-7. 2. No evidence fracture. Face CT 04/08/18 13:23 CONCLUSION: No evidence of fracture. Head CT 04/08/18 13:23 CONCLUSION: No acute intracranial findings. . Chest X-Ray 04/08/18 19:30 CONCLUSION: No evidence of acute cardiopulmonary disease. <Franklin Bhatti - 04/09/18 13:23> Impressions Cervical Spine CT 04/08/18 13:23 CONCLUSION: 1. Postsurgical findings C6-7. 2. No evidence fracture. Face CT 04/08/18 13:23 CONCLUSION: No evidence of fracture. Head CT 04/08/18 13:23 CONCLUSION: No acute intracranial findings. . Chest X-Ray 04/08/18 19:30 CONCLUSION: No evidence of acute cardiopulmonary disease. <Shruti Solis T - 04/08/18 22:40> Caprini VTE Risk Assessment Caprini VTE Risk Assessment: No/Low Risk (score <= 1) <Shruti Solis T - 09/21 01:34 EDT> Caprini Risk Assessment Model: Point Value = 1 Point Value = 2 Point Value = 3 Point Value = 5 Age 41-60 Minor surgery BMI > 25 kg/m2 Swollen legs Varicose veins or History of unexplained or recurrent spontaneous Oral contraceptives or hormone replacement Sepsis (< 1 month) Serious lung disease, including pneumonia (< 1 month) Abnormal pulmonary function Acute myocardial infarction Congestive heart failure (< 1 month) History of inflammatory bowel disease Medical patient at bed rest Age 61-74 Arthroscopic surgery Major open surgery (> 45 min) Laparoscopic surgery (> 45 min) Malignancy Confined to bed (> 72 hours) Immobilizing plaster cast Central venous access Age >= 75 History of VTE Family history of VTE Factor V Leiden Prothrombin [id number] Lupus anticoagulant Anticardiolipin antibodies Elevated serum homocysteine Heparin-induced thrombocytopenia Other congenital or acquired thrombophilia Stroke (< 1 month) Elective arthroplasty Hip, pelvis, or leg fracture Acute spinal cord injury (< 1 month) <Franklin Bhatti - 04/09/18 13:23> Point Value = 1 Point Value = 2 Point Value = 3 Point Value = 5 Age 41-60 Minor surgery BMI > 25 kg/m2 Swollen legs Varicose veins or History of unexplained or recurrent spontaneous Oral contraceptives or hormone replacement Sepsis (< 1 month) Serious lung disease, including pneumonia (< 1 month) Abnormal pulmonary function Acute myocardial infarction Congestive heart failure (< 1 month) History of inflammatory bowel disease Medical patient at bed rest Age 61-74 Arthroscopic surgery Major open surgery (> 45 min) Laparoscopic surgery (> 45 min) Malignancy Confined to bed (> 72 hours) Immobilizing plaster cast Central venous access Age >= 75 History of VTE Family history of VTE Factor V Leiden Prothrombin [id number] Lupus anticoagulant Anticardiolipin antibodies Elevated serum homocysteine Heparin-induced thrombocytopenia Other congenital or acquired thrombophilia Stroke (< 1 month) Elective arthroplasty Hip, pelvis, or leg fracture Acute spinal cord injury (< 1 month) <Shruti Solis T - 04/09/18 01:34 EDT> Prophylaxis Regimen: Total Risk Factor Score Risk Level Prophylaxis Regimen 0-1 Low Early ambulation 2 Moderate Order ONE of the following: *Sequential Compression Device (SCD) *Heparin 5000 units SQ BID 3-4 Higher Order ONE of the following medications: *Heparin 5000 units SQ TID *Enoxaparin/Lovenox 40 mg SQ daily (WT < 150 kg, CrCl > 30 mL/min) *Enoxaparin/Lovenox 30 mg SQ daily (WT < 150 kg, CrCl > 10-29 mL/min) *Enoxaparin/Lovenox 30 mg SQ BID (WT < 150 kg, CrCl > 30 mL/min) AND/OR *Sequential Compression Device (SCD) 5 or more Highest Order ONE of the following medications: *Heparin 5000 units SQ TID (Preferred with Epidurals) *Enoxaparin/Lovenox 40 mg SQ daily (WT < 150 kg, CrCl > 30 mL/min) *Enoxaparin/Lovenox 30 mg SQ daily (WT < 150 kg, CrCl > 10-29 mL/min) *Enoxaparin/Lovenox 30 mg SQ BID (WT < 150 kg, CrCl > 30 mL/min) AND *Sequential Compression Device (SCD) <Franklin Bhatti - 04/09/18 13:23> Total Risk Factor Score Risk Level Prophylaxis Regimen 0-1 Low Early ambulation 2 Moderate Order ONE of the following: *Sequential Compression Device (SCD) *Heparin 5000 units SQ BID 3-4 Higher Order ONE of the following medications: *Heparin 5000 units SQ TID *Enoxaparin/Lovenox 40 mg SQ daily (WT < 150 kg, CrCl > 30 mL/min) *Enoxaparin/Lovenox 30 mg SQ daily (WT < 150 kg, CrCl > 10-29 mL/min) *Enoxaparin/Lovenox 30 mg SQ BID (WT < 150 kg, CrCl > 30 mL/min) AND/OR *Sequential Compression Device (SCD) 5 or more Highest Order ONE of the following medications: *Heparin 5000 units SQ TID (Preferred with Epidurals) *Enoxaparin/Lovenox 40 mg SQ daily (WT < 150 kg, CrCl > 30 mL/min) *Enoxaparin/Lovenox 30 mg SQ daily (WT < 150 kg, CrCl > 10-29 mL/min) *Enoxaparin/Lovenox 30 mg SQ BID (WT < 150 kg, CrCl > 30 mL/min) AND *Sequential Compression Device (SCD) <Shruti Solis T - 04/08/18 22:40> Assessment and Plan - Assessment (1) Alcohol intoxication Code(s): F10.929 - Alcohol use, unspecified with intoxication, unspecified Status: Acute Plan: 48-year-old male with a history of COPD and alcohol abuse presents the ED via EMS under Chan act by police. Patient reports drinking 1 gallon of vodka every day Denies any history of cirrhosis or hepatitis AST elevated at 432, ALT elevated at 137, alk phos elevated at 243 Plt count 70 Ethanol level 454 Urine drug screen negative Continue to monitor liver enzymes Hepatitis panel pending Coagulation profile pending HIV pending [facility] protocol in place Folic acid, thiamine, multivitamin CM consulted for assistance with providing patient with resources for rehab (2) Acute exacerbation of chronic obstructive pulmonary disease (COPD) Code(s): J44.1 - Chronic obstructive pulmonary disease with (acute) exacerbation Status: Acute Plan: Patient reports increase in sputum production, unsure of sputum color Currently not on home oxygen Start Zithromax and prednisone DuoNebs [facility] q6h Supplemental oxygen to keep sats above 92% (3) Laceration of chin Code(s): S01.81XA - Laceration without foreign body of other part of head, initial encounter Status: Acute Plan: 3 cm laceration under right chin [address] (4) Hypertension Code(s): I10 - Essential (primary) hypertension Status: Acute Plan: Continue home clonidine (5) Nutrition, metabolism, and development symptoms Code(s): R63.8 - Other symptoms and signs concerning food and fluid intake Status: Acute Plan: Fluids: not indicated Diet: Regular diet vitals q4h, monitor I & Os DVT ppx: early ambulation, SCDs <Shruti Solis T - 04/09/18 01:35 EDT> (1) Alcohol withdrawal Code(s): F10.239 - Alcohol dependence with withdrawal, unspecified Status: Acute (2) Alcohol intoxication Code(s): F10.929 - Alcohol use, unspecified with intoxication, unspecified Status: Acute (3) Suicidal ideation Code(s): R45.851 - Suicidal ideations Status: Acute (4) Acquired pancytopenia Code(s): D61.818 - Other pancytopenia Status: Acute (5) Acute exacerbation of chronic obstructive pulmonary disease (COPD) Code(s): J44.1 - Chronic obstructive pulmonary disease with (acute) exacerbation Status: Acute (6) Laceration of chin Code(s): S01.81XA - Laceration without foreign body of other part of head, initial encounter Status: Acute (7) Hypertension Code(s): I10 - Essential (primary) hypertension Status: Chronic (8) Nutrition, metabolism, and development symptoms Code(s): R63.8 - Other symptoms and signs concerning food and fluid intake Status: Acute <Franklin Bhatti Echo - 04/09/18 13:23> - Attending Attestation The exam, history, and the medical decision-making described in the above note were completed with the assistance of the resident physician. I reviewed and agree with the findings presented. I attest that I had a [id number] encounter with the patient on the same day, and personally performed and documented my assessment and findings in the medical record. <Franklin Bhatti - 04/09/18 13:23> <Shruti Solis T - Last Filed: 04/09/18 01:35 EDT> (1) Alcohol intoxication Qualifiers: Complication of substance-induced condition: uncomplicated Qualified Code(s) : F10.920 - Alcohol use, unspecified with intoxication, uncomplicated <Franklin Bhatti - Last Filed: 04/09/18 13:23> (2) Alcohol intoxication Qualifiers: Complication of substance-induced condition: uncomplicated Qualified Code(s) : F10.920 - Alcohol use, unspecified with intoxication, uncomplicated <WillLizzetten Marcano T - Last Filed: 04/09/18 01:35 EDT> (1) Alcohol intoxication Qualifiers: Complication of substance-induced condition: uncomplicated Qualified Code(s) : F10.920 - Alcohol use, unspecified with intoxication, uncomplicated <Franklin Bhatti - Last Filed: 04/09/18 13:23> (2) Alcohol intoxication Qualifiers: Complication of substance-induced condition: uncomplicated Qualified Code(s) : F10.920 - Alcohol use, unspecified with intoxication, uncomplicated
[2018-04-08] MEDS ORDERED: Haloperidol Inj 5 MG/ML Ampul IV.PUSH PRN (22:58)
[2018-04-08] MEDS ORDERED: LORazepam 1 MG Tablet PO PRN (22:58)
[2018-04-08] MEDS ORDERED: Azithromycin 250 MG Tablet PO ONE (23:19)
[2018-04-09] MEDS ORDERED: Sodium Chloride 0.9% 2 ML Flush PRN IV.FLUSH (00:48)
[2018-04-09 09:44] LABS: Baso % (Auto) 0.2 % (0.0-2.0); Eos % (Auto) 0.1 % (0.0-4.0); Hematocrit 38.6 % (39.0-51.0); Hemoglobin 13.1 gm/dL (13.0-17.0); Lymph # (Auto) 0.2 th/mm3 (1.0-4.8); Lymph % (Auto) 14.5 % (9.0-44.0); Mean Corpuscular Volume 79.4 fL (80.0-100.0); Mean Platelet Volume 8.4 fL (7.0-11.0); Mono # (Auto) 0.1 th/mm3 (0.0-0.9); Mono % (Auto) 5.7 % (0.0-8.0); Neut # (Auto) 1.3 th/mm3 (1.8-7.7); Neut % (Auto) 79.5 % (16.0-70.0); Platelet Count 58 th/mm3 (150-450); Red Blood Count 4.86 mil/mm3 (4.50-5.90); Red Cell Distribution Width 21.4 % (11.6-17.2); White Blood Count 1.6 th/mm3 (4.0-11.0)
[2018-04-09 09:46] LABS: Prothrombin Time 10.2 sec (9.8-11.6)
[2018-04-09] MEDS: Multivitamin/Minerals Therapeutic Tablet PO SCH (10:15)
[2018-04-09] MEDS: predniSONE 20 MG Tablet PO SCH (10:15)
[2018-04-09] MEDS: Azithromycin 250 MG Tablet PO SCH (10:15)
[2018-04-09] MEDS: Folic Acid 1 MG Tablet PO SCH (10:15)
[2018-04-09] MEDS: Sodium Chloride 0.9% 2 ML Flush BID IV.FLUSH SCH ×2 (10:16→20:55)
[2018-04-09 10:17] LABS: Alanine Aminotransferase 121 U/L (12-78); Albumin 3.2 g/dL (3.4-5.0); Alkaline Phosphatase 272 U/L (45-117); Anion Gap 12 meq/L (5-15); Aspartate Aminotransferase 257 U/L (15-37); Blood Urea Nitrogen 7 mg/dL (7-18); Calcium 8.9 mg/dL (8.5-10.1); Carbon Dioxide 27.1 meq/L (21.0-32.0); Chloride 93 meq/L (98-107); Glomerular Filtration Rate Greater Than 89 mL/min (>89); Glucose,Random 174 mg/dL (74-106); Sodium 132 meq/L (136-145); Total Protein 7.5 g/dL (6.4-8.2)
[2018-04-09 11:28] LABS: Lymphocytes 6 % (9-44); Monocytes 8 % (0-8)
--- NOTE | 2018-04-09 12:35 | P.PNFP ---
Subjective Interval history: Patient seen and discussed with resident team this morning. Per nurse, he has been doing relatively well. He has tremulousness, mild agitation, cramping abdominal pain. He states, "I feel like I'm going into opioid withdrawal". He relates that he is an IV heroin user, in addition to using excessive alcohol. No hallucinations at this time. No reported seizures overnight. CIWA scores 9, 5 , 14. Reports no chest pain or difficulty breathing. No lower extremity swelling. At this time, no suicidal or homicidal ideation. Has required 3 mg total of Ativan for withdrawals. Results - Labs Result diagrams: 04/09/18 09:15 04/09/18 09:25 Abnormal lab results 04/08/18 04/08/18 04/08/18 Range/Units 13:47 13:47 13:47 WBC 3.5 L (4.0-11.0) th/mm3 RBC 6.00 H (4.50-5.90) mil/mm3 Hct (39.0-51.0) % MCV (80.0-100.0) fL RDW 21.7 H (11.6-17.2) % Plt Count 70 L (150-450) th/mm3 Neut % (Auto) (16.0-70.0) % [place] % (Auto) 9.4 H (0.0-8.0) % Neut # (Auto) 1.6 L (1.8-7.7) th/mm3 Lymph # (Auto) (1.0-4.8) th/mm3 Seg Neuts % (Manual) (16-70) % Lymphocytes % (Manual) (9-44) % Abs Neuts (Manual) (1.8-7.7) th/mm3 Platelet Estimate Low L (Normal) Platelet Morphology Enlarged H (Normal) Sodium (136-145) meq/L Chloride (98-107) meq/L BUN 5 L (7-18) mg/dL Creatinine 0.53 L (0.60-1.30) mg/dL Random Glucose (74-106) mg/dL Calcium 7.1 L* D (8.5-10.1) mg/dL Prot Corrected Calcium 7.2 L* (8.5-10.1) mg/dL Magnesium 1.4 L (1.5-2.5) mg/dL Total Bilirubin (0.2-1.0) mg/dL Direct Bilirubin (0.0-0.2) mg/dL AST 432 H (15-37) U/L ALT 137 H (12-78) U/L Alkaline Phosphatase 243 H (45-117) U/L Albumin 2.8 L (3.4-5.0) g/dL Salicylates Less than 1.7 L (2.8-20.0) mg/dL Acetaminophen Less than 2.0 L (10.0-30.0) mcg/mL Serum Alcohol 454 H (0-5) mg/dL 04/09/18 04/09/18 Range/Units 09:15 09:25 WBC 1.6 L D (4.0-11.0) th/mm3 RBC (4.50-5.90) mil/mm3 Hct 38.6 L (39.0-51.0) % MCV 79.4 L (80.0-100.0) fL RDW 21.4 H (11.6-17.2) % Plt Count 58 L (150-450) th/mm3 Neut % (Auto) 79.5 H (16.0-70.0) % [place] % (Auto) (0.0-8.0) % Neut # (Auto) 1.3 L (1.8-7.7) th/mm3 Lymph # (Auto) 0.2 L (1.0-4.8) th/mm3 Seg Neuts % (Manual) 86 H (16-70) % Lymphocytes % (Manual) 6 L (9-44) % Abs Neuts (Manual) 1.4 L (1.8-7.7) th/mm3 Platelet Estimate Low L (Normal) Platelet Morphology Enlarged H (Normal) Sodium 132 L (136-145) meq/L Chloride 93 L D (98-107) meq/L BUN (7-18) mg/dL Creatinine (0.60-1.30) mg/dL Random Glucose 174 H (74-106) mg/dL Calcium (8.5-10.1) mg/dL Prot Corrected Calcium (8.5-10.1) mg/dL Magnesium (1.5-2.5) mg/dL Total Bilirubin 1.2 H (0.2-1.0) mg/dL Direct Bilirubin 0.5 H (0.0-0.2) mg/dL AST 257 H (15-37) U/L ALT 121 H (12-78) U/L Alkaline Phosphatase 272 H (45-117) U/L Albumin 3.2 L (3.4-5.0) g/dL Salicylates (2.8-20.0) mg/dL Acetaminophen (10.0-30.0) mcg/mL Serum Alcohol (0-5) mg/dL Short CBC 04/08/18 04/09/18 Range/Units 13:47 09:15 WBC 3.5 L 1.6 L D (4.0-11.0) th/mm3 Hgb 16.2 13.1 D (13.0-17.0) gm/dL Hct 48.1 38.6 L (39.0-51.0) % Plt Count 70 L 58 L (150-450) th/mm3 BMP 04/08/18 04/09/18 13:47 09:25 Sodium 140 132 L Potassium 3.9 4.0 Chloride 105 D 93 L D Carbon Dioxide 26.5 27.1 BUN 5 L 7 Creatinine 0.53 L 0.72 Calcium 7.1 L* D 8.9 D Liver Function 04/08/18 04/09/18 Range/Units 13:47 09:25 Total Bilirubin 0.7 1.2 H (0.2-1.0) mg/dL Direct Bilirubin 0.5 H (0.0-0.2) mg/dL AST 432 H 257 H (15-37) U/L ALT 137 H 121 H (12-78) U/L Alkaline Phosphatase 243 H 272 H (45-117) U/L Albumin 2.8 L 3.2 L (3.4-5.0) g/dL - Imaging Impressions Cervical Spine CT 04/08/18 13:23 CONCLUSION: 1. Postsurgical findings C6-7. 2. No evidence fracture. Face CT 04/08/18 13:23 CONCLUSION: No evidence of fracture. Head CT 04/08/18 13:23 CONCLUSION: No acute intracranial findings. . Chest X-Ray 04/08/18 19:30 CONCLUSION: No evidence of acute cardiopulmonary disease. Physical Exam Vital signs: Vital Signs 04/08/18 13:24 04/08/18 13:49 04/08/18 17:06 Temperature Pulse Rate 81 72 78 Respiratory Rate 25 H 12 14 Blood Pressure 178/100 H 133/90 Pulse Oximetry 98 98 04/08/18 20:24 04/08/18 20:34 04/08/18 21:00 Temperature Pulse Rate 83 88 77 Respiratory Rate 22 22 14 Blood Pressure 136/87 Pulse Oximetry 95 85 L 04/08/18 21:02 04/08/18 22:31 04/09/18 00:00 Temperature 98.8 F Pulse Rate 80 88 89 Respiratory Rate 18 20 18 Blood Pressure 136/87 123/77 Pulse Oximetry 94 L 93 L 95 04/09/18 04:00 04/09/18 07:38 04/09/18 08:00 Temperature 98.3 F 98.5 F Pulse Rate 73 88 75 Respiratory Rate 18 22 16 Blood Pressure 164/80 H 171/95 H Pulse Oximetry 97 91 L 92 L 04/09/18 11:47 Temperature 98.5 F Pulse Rate 73 Respiratory Rate 16 Blood Pressure 160/95 H Pulse Oximetry 94 L Intake & Output 04/08/18 04/09/18 04/09/18 19:59 06:59 18:59 Intake Total Output Total Balance Weight Intake: IV Calcium Gluconate Inj 1 GM In D5W Inj 100 ML @ 110 mls/hr IV. SIG ONCE ONE Rx#:[id number] NS Inj 1,000 ML @ Wide Open IV. SIG BOLUS ONE Rx#:[id number] Oral Output: Urine Other: # Voids Weight On Admission Narrative: General: Disheveled appearance but mostly pleasant demeanor, mild/moderate tremors Skin: 3 cm laceration under right chin, [address] HEENT: Normocephalic, atraumatic, PERRLA Cardio: Regular rate and rhythm, no murmurs rubs or gallops Pulmonary: Mild expiratory wheezing, no rales or rhonchi Abdomen: Soft, nontender, nondistended, positive bowel sounds, no guarding, no rebound tenderness Extremities: No cyanosis or edema Neuro/Psych: Alert and oriented x3, no obvious hallucinations/delusions, no suicidal/homicidal ideation at this time, CIWA 9, 5, 14. Assessment and Plan - Assessment (1) Alcohol withdrawal Code(s): F10.239 - Alcohol dependence with withdrawal, unspecified Status: Acute Plan: Tremulousness, CIWA scores 9, 5, 14 - Continue CIWA protocol - Ativan as needed (2) Alcohol intoxication Code(s): F10.929 - Alcohol use, unspecified with intoxication, unspecified Status: Acute Plan: 48-year-old male with a history of COPD and alcohol abuse presents the ED via EMS under Chan act by police for presumed alcohol intoxication and suicidal ideation. Patient reports drinking 1 gallon of vodka every day. AST elevated at 432, ALT elevated at 137, alk phos elevated at 243. Urine drug screen negative. HIV negative, hepatitis panel pending Folic acid, thiamine, multivitamin CM consulted for assistance with providing patient with resources for rehab (3) Suicidal ideation Code(s): R45.851 - Suicidal ideations Status: Acute Plan: Apparently stated he wanted to drink himself to . No suicidal ideation by our exam today. - Psychiatry on board - Under Chan Act (4) Acquired pancytopenia Code(s): D61.818 - Other pancytopenia Status: Acute Plan: Decreased platelets and WBC, possibly related to alcohol abuse, poor nutrition, B12/folate deficiency. Has mild neutropenia. No fevers present. (5) Acute exacerbation of chronic obstructive pulmonary disease (COPD) Code(s): J44.1 - Chronic obstructive pulmonary disease with (acute) exacerbation Status: Acute Plan: Patient reports increase in sputum production Mild exacerbation of COPD Currently not on home oxygen Continue azithromycin and prednisone DuoNebs [facility] q6h Supplemental oxygen to keep sats above 92% (6) Laceration of chin Code(s): S01.81XA - Laceration without foreign body of other part of head, initial encounter Status: Acute Plan: 3 cm laceration under right chin [address] (7) Hypertension Code(s): I10 - Essential (primary) hypertension Status: Chronic Plan: Continue home clonidine (8) Nutrition, metabolism, and development symptoms Code(s): R63.8 - Other symptoms and signs concerning food and fluid intake Status: Acute Plan: Fluids: by mouth Diet: Regular diet, folic acid, thiamine, multivitamin vitals q4h, monitor I & Os DVT ppx: early ambulation, SCDs - Assessment and Plan Discussed Condition With: Seen and discussed with Dr. Christianson, Dr. Solis, Dr. Petit Discharge Planning: Awaiting clearance of Chan Act. If he is not actively suicidal, Chan Act is cleared, there is a good safety plan at discharge, and resources are provided for him to seek help for alcoholism and opioid abuse, he may be discharged today possibly. We discussed rehab options as well as methadone or buprenorphine treatment as an outpatient. (2) Alcohol intoxication Qualifiers: Complication of substance-induced condition: uncomplicated Qualified Code(s) : F10.920 - Alcohol use, unspecified with intoxication, uncomplicated
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
[2018-04-10 05:56] LABS: Reticulocyte Percent 0.6 % (0.4-3.0)
[2018-04-10 06:47] LABS: Anion Gap 11 meq/L (5-15); Blood Urea Nitrogen 6 mg/dL (7-18); Calcium 9.6 mg/dL (8.5-10.1); Carbon Dioxide 26.6 meq/L (21.0-32.0); Chloride 99 meq/L (98-107); Folate 10.7 ng/mL (3.1-17.5); Glomerular Filtration Rate Greater Than 89 mL/min (>89); Glucose,Random 112 mg/dL (74-106); Potassium 3.1 meq/L (3.5-5.1); Sodium 137 meq/L (136-145); Vitamin B12 607 pg/mL (193-986)
[2018-04-10] MEDS ORDERED: Potassium Chloride 10 MEQ ER Capsule PO ONE (07:13)
[2018-04-10] MEDS: Azithromycin 250 MG Tablet PO SCH (09:05)
[2018-04-10] MEDS: Folic Acid 1 MG Tablet PO SCH (09:05)
[2018-04-10] MEDS: Multivitamin/Minerals Therapeutic Tablet PO SCH (09:05)
[2018-04-10] MEDS: predniSONE 20 MG Tablet PO SCH (09:05)
[2018-04-10] MEDS: Sodium Chloride 0.9% 2 ML Flush BID IV.FLUSH SCH (09:06)
--- NOTE | 2018-04-10 11:28 | P.PNFP ---
Subjective Interval history: Patient was seen and examined at bedside this morning. Overnight patient had a CIWA score of 23. This morning CIWA scores have been ranging from 12, 14, 10. Nurse reports patient is doing okay. Patient reports he feels much better compared to yesterday. He is having less tremors and is able to walk. He does complain of diarrhea, twice this morning and attributes this to opiate withdrawal from heroin. Patient also endorses anxiety, fever and chills. <Gerard Link D - 04/10/18 12:20> Results - Labs Result diagrams: 04/10/18 13:33 04/10/18 13:33 <Franklin Bhatti L - 04/10/18 17:04> Abnormal lab results 04/10/18 04/10/18 04/10/18 Range/Units 04:31 13:33 13:33 MCV 79.8 L (80.0-100.0) fL RDW 21.4 H (11.6-17.2) % Plt Count 69 L (150-450) th/mm3 Neut % (Auto) 85.7 H (16.0-70.0) % Lymph # (Auto) 0.4 L (1.0-4.8) th/mm3 Platelet Estimate Low L (Normal) Platelet Morphology Enlarged H (Normal) Sodium 135 L (136-145) meq/L Potassium 3.1 L D (3.5-5.1) meq/L BUN 6 L 5 L (7-18) mg/dL Random Glucose 112 H 144 H (74-106) mg/dL Total Bilirubin 1.2 H (0.2-1.0) mg/dL AST 237 H (15-37) U/L ALT 131 H (12-78) U/L Alkaline Phosphatase 315 H (45-117) U/L Short CBC 04/10/18 Range/Units 13:33 WBC 4.2 (4.0-11.0) th/mm3 Hgb 14.5 (13.0-17.0) gm/dL Hct 42.4 (39.0-51.0) % Plt Count 69 L (150-450) th/mm3 BMP 04/10/18 04/10/18 04:31 13:33 Sodium 137 135 L Potassium 3.1 L D 3.7 Chloride 99 99 Carbon Dioxide 26.6 24.2 BUN 6 L 5 L Creatinine 0.63 0.78 Calcium 9.6 9.5 Liver Function 04/10/18 Range/Units 13:33 Total Bilirubin 1.2 H (0.2-1.0) mg/dL AST 237 H (15-37) U/L ALT 131 H (12-78) U/L Alkaline Phosphatase 315 H (45-117) U/L Albumin 3.5 (3.4-5.0) g/dL <Franklin Bhatti L - 04/10/18 17:04> Abnormal lab results 04/09/18 04/10/18 Range/Units 09:15 04:31 Seg Neuts % (Manual) 86 H (16-70) % Lymphocytes % (Manual) 6 L (9-44) % Abs Neuts (Manual) 1.4 L (1.8-7.7) th/mm3 Platelet Estimate Low L (Normal) Platelet Morphology Enlarged H (Normal) Potassium 3.1 L D (3.5-5.1) meq/L BUN 6 L (7-18) mg/dL Random Glucose 112 H (74-106) mg/dL BMP 04/10/18 04:31 Sodium 137 Potassium 3.1 L D Chloride 99 Carbon Dioxide 26.6 BUN 6 L Creatinine 0.63 Calcium 9.6 <Gerard Link D - 04/10/18 11:28> Physical Exam Vital signs: Vital Signs 04/09/18 19:23 04/09/18 19:24 04/09/18 19:51 Temperature 99.1 F Pulse Rate 88 96 H Respiratory Rate 16 18 Blood Pressure 155/86 H Pulse Oximetry 93 L 93 L 04/09/18 23:53 04/10/18 03:45 04/10/18 07:40 Temperature 99.1 F 99.7 F H Pulse Rate 93 H 86 86 Respiratory Rate 18 18 18 Blood Pressure 161/80 H 168/99 H 158/101 H Pulse Oximetry 95 98 92 L 04/10/18 12:11 Temperature 99.0 F Pulse Rate 82 Respiratory Rate 18 Blood Pressure 165/112 H Pulse Oximetry 96 Intake & Output 04/09/18 04/10/18 04/10/18 18:59 06:59 18:59 Intake Total 600 / 600 1600 / 1600 Output Total 650 / 650 Balance 600 / 600 950 / 950 Intake: Oral 600 / 600 1600 / 1600 Output: Urine 650 / 650 Other: # Voids 4 Date of Last Bowel Movement 04/10/18 <Franklin Bhatti L - 04/10/18 17:04> Vital Signs 04/09/18 11:47 04/09/18 13:05 04/09/18 16:00 Temperature 98.5 F 99.0 F Pulse Rate 73 86 76 Respiratory Rate 16 20 16 Blood Pressure 160/95 H 166/96 H Pulse Oximetry 94 L 94 L 04/09/18 19:23 04/09/18 19:24 04/09/18 19:51 Temperature 99.1 F Pulse Rate 88 96 H Respiratory Rate 16 18 Blood Pressure 155/86 H Pulse Oximetry 93 L 93 L 04/09/18 23:53 04/10/18 03:45 04/10/18 07:40 Temperature 99.1 F 99.7 F H Pulse Rate 93 H 86 86 Respiratory Rate 18 18 18 Blood Pressure 161/80 H 168/99 H 158/101 H Pulse Oximetry 95 98 92 L Intake & Output 04/09/18 04/10/18 04/10/18 18:59 06:59 18:59 Intake Total 600 / 600 1600 / 1600 Output Total 650 / 650 Balance 600 / 600 950 / 950 Intake: Oral 600 / 600 1600 / 1600 Output: Urine 650 / 650 Other: # Voids 4 Date of Last Bowel Movement 04/10/18 <Gerard Link D - 04/10/18 11:28> - Constitutional mild distress <Gerard Link D - 04/10/18 12:20> - Routine HEENT Exam Head: Present: normocephalic, laceration (Laceration on right side of forehead healing well.laceration under right chin, sutures in place). Absent: facial swelling <Gerard Link D - 04/10/18 12:20> Eye: Present: EOMI, PERRL <Gerard Link D - 04/10/18 12:20> ENT: Present: mucous membranes moist <Gerard Link D - 04/10/18 12:20> - Routine Neck Exam Present: supple, full ROM <Gerard Link D - 04/10/18 12:20> - Routine Respiratory Exam Present: CTA bilaterally. Absent: accessory muscle use <Gerard Link D - 10/21 12:20> - Routine Cardiovascular Exam Present: RRR, S1, S2. Absent: murmur, gallop <Gerard Link - 04/10/18 12: 20> - Routine Abdominal Exam Present: soft, normoactive bowel sounds. Absent: tenderness, distended, rebound , guarding <Gerard Link - 04/10/18 12:20> - Routine Extremities Exam Present: pulses intact. Absent: cyanosis, calf tenderness <Gerard Link - 04/10/18 12:20> - Routine Neurological Exam Present: oriented X3, moving all extremities, normal speech, tremors (Mild, improving). Absent: nystagmus, asterixis <Gerard Link - 04/10/18 12:20> Assessment and Plan - Assessment (1) Alcohol withdrawal Code(s): F10.239 - Alcohol dependence with withdrawal, unspecified Status: Acute (2) Alcohol intoxication Code(s): F10.929 - Alcohol use, unspecified with intoxication, unspecified Status: Acute (3) Suicidal ideation Code(s): R45.851 - Suicidal ideations Status: Acute (4) Acquired pancytopenia Code(s): D61.818 - Other pancytopenia Status: Acute (5) Acute exacerbation of chronic obstructive pulmonary disease (COPD) Code(s): J44.1 - Chronic obstructive pulmonary disease with (acute) exacerbation Status: Acute (6) Laceration of chin Code(s): S01.81XA - Laceration without foreign body of other part of head, initial encounter Status: Acute (7) Hypertension Code(s): I10 - Essential (primary) hypertension Status: Chronic (8) Nutrition, metabolism, and development symptoms Code(s): R63.8 - Other symptoms and signs concerning food and fluid intake Status: Acute <DavyFranklin Echo - 04/10/18 17:04> (1) Alcohol withdrawal Code(s): F10.239 - Alcohol dependence with withdrawal, unspecified Status: Acute Plan: Mild tremulousness, most recent CIWA scores 23, 12, 14, 10, 12 - Continue CIWA protocol - Ativan as needed -Patient also with history of heroin use, consider scheduled opioids to minimize effects of opioid withdrawal (2) Alcohol intoxication Code(s): F10.929 - Alcohol use, unspecified with intoxication, unspecified Status: Acute Plan: 48-year-old male with a history of COPD and alcohol abuse presented to the ED via EMS under [place] act by police for presumed alcohol intoxication and suicidal ideation. Patient reports drinking 1 gallon of vodka every day. AST elevated at 432, ALT elevated at 137, alk phos elevated at 243. Urine drug screen negative. LFT downtrending HIV negative, hepatitis panel pending Folic acid, thiamine, multivitamin CM consulted for assistance with providing patient with resources for rehab (3) Suicidal ideation Code(s): R45.851 - Suicidal ideations Status: Acute Plan: Apparently stated he wanted to drink himself to . No suicidal ideation by our exam today, stated he did not mean to hurt himself. - Psychiatry on board - Under [place] Act (4) Acquired pancytopenia Code(s): D61.818 - Other pancytopenia Status: Acute Plan: Decreased platelets and WBC, possibly related to alcohol abuse, poor nutrition, B12/folate deficiency. Has mild neutropenia. No fevers present. f/u repeat cbc (5) Acute exacerbation of chronic obstructive pulmonary disease (COPD) Code(s): J44.1 - Chronic obstructive pulmonary disease with (acute) exacerbation Status: Acute Plan: Patient reports increase in sputum production Mild exacerbation of COPD Currently not on home oxygen [facility] oxygen to keep sats above 92% (6) Laceration of chin Code(s): S01.81XA - Laceration without foreign body of other part of head, initial encounter Status: Acute Plan: 3 cm laceration under right chin [address] (7) Hypertension Code(s): I10 - Essential (primary) hypertension Status: Chronic Plan: Continue home clonidine (8) Nutrition, metabolism, and development symptoms Code(s): R63.8 - Other symptoms and signs concerning food and fluid intake Status: Acute Plan: Fluids: by mouth Diet: Regular diet, folic acid, thiamine, multivitamin vitals q4h, monitor I & Os Electrolytes: replete as needed DVT ppx: early ambulation, SCDs <Gerard Link - 04/10/18 11:59> - Attending Attestation The exam, history, and the medical decision-making described in the above note were completed with the assistance of the resident physician. I reviewed and agree with the findings presented. I attest that I had a [id number] encounter with the patient on the same day, and personally performed and documented my assessment and findings in the medical record. At the time of my exam in the afternoon, he reports feeling better. He reports his withdrawal symptoms are improving. He does continue to have diarrhea and nausea, no vomiting. He continues to have tremors, but decreased. No hallucinations or delusions. No seizure activity overnight. He is being discharged to the psych unit today. If we should be consulted, pending to-do items include: hepatitis panel which I do not believe was ever collected, increasing clonidine to control blood pressure and withdrawal symptoms, possible addition of an opiate to help with opioid withdrawals, continued CIWA protocol with ativan as needed. His white count and neutrophil count are significantly improved. B12/folate normal. Peripheral smear is pending to workup low white count and platelets. He can take Zofran and Imodium for symptom relief. <Franklin Bhatti - 04/10/18 17:04> <Gerard Link D - Last Filed: 04/10/18 11:59> (2) Alcohol intoxication Qualifiers: Complication of substance-induced condition: uncomplicated Qualified Code(s) : F10.920 - Alcohol use, unspecified with intoxication, uncomplicated <Franklin Bhatti - Last Filed: 04/10/18 17:04> (2) Alcohol intoxication Qualifiers: Complication of substance-induced condition: uncomplicated Qualified Code(s) : F10.920 - Alcohol use, unspecified with intoxication, uncomplicated <Gerard Link - Last Filed: 04/10/18 11:59> (2) Alcohol intoxication Qualifiers: Complication of substance-induced condition: uncomplicated Qualified Code(s) : F10.920 - Alcohol use, unspecified with intoxication, uncomplicated <Franklin Bhatti L - Last Filed: 04/10/18 17:04> (2) Alcohol intoxication Qualifiers: Complication of substance-induced condition: uncomplicated Qualified Code(s) : F10.920 - Alcohol use, unspecified with intoxication, uncomplicated
[2018-04-10 13:52] LABS: Baso % (Auto) 0.2 % (0.0-2.0); Eos % (Auto) 0.1 % (0.0-4.0); Hematocrit 42.4 % (39.0-51.0); Hemoglobin 14.5 gm/dL (13.0-17.0); Lymph # (Auto) 0.4 th/mm3 (1.0-4.8); Lymph % (Auto) 9.3 % (9.0-44.0); Mean Corpuscular HGB Conc 34.2 % (32.0-36.0); Mean Corpuscular Hemoglobin 27.3 pg (27.0-34.0); Mean Corpuscular Volume 79.8 fL (80.0-100.0); Mean Platelet Volume 9.2 fL (7.0-11.0); Mono # (Auto) 0.2 th/mm3 (0.0-0.9); Mono % (Auto) 4.7 % (0.0-8.0); Neut # (Auto) 3.6 th/mm3 (1.8-7.7); Neut % (Auto) 85.7 % (16.0-70.0); Platelet Count 69 th/mm3 (150-450); Red Blood Count 5.32 mil/mm3 (4.50-5.90); Red Cell Distribution Width 21.4 % (11.6-17.2); White Blood Count 4.2 th/mm3 (4.0-11.0)
[2018-04-10 14:21] LABS: Albumin 3.5 g/dL (3.4-5.0); Anion Gap 12 meq/L (5-15); Aspartate Aminotransferase 237 U/L (15-37); Blood Urea Nitrogen 5 mg/dL (7-18); Calcium 9.5 mg/dL (8.5-10.1); Carbon Dioxide 24.2 meq/L (21.0-32.0); Chloride 99 meq/L (98-107); Glomerular Filtration Rate Greater Than 89 mL/min (>89); Glucose,Random 144 mg/dL (74-106); Potassium 3.7 meq/L (3.5-5.1); Sodium 135 meq/L (136-145)
[2018-04-10 14:25] LABS: Alanine Aminotransferase 131 U/L (12-78); Alkaline Phosphatase 315 U/L (45-117)
== END 2018-04-10 15:34 ==
LOC: NEPC 13:14 → NEDA 13:14 → NEPHCDU 04-09
PROVIDERS: ADMIT Family Medicine; ATTEND Family Medicine

== ENCOUNTER 2018-04-10 14:53 | Inpatient (IN) ==
[2018-04-10] MEDS ORDERED: Aluminum/Magnesium/Simethacone Susp 30 ML UDC PO PRN (17:30)
[2018-04-10] MEDS ORDERED: LORazepam 1 MG Tablet PO PRN (22:09)
[2018-04-11 09:20] LABS: Anion Gap 11 meq/L (5-15); Blood Urea Nitrogen 10 mg/dL (7-18); Calcium 8.8 mg/dL (8.5-10.1); Carbon Dioxide 22.1 meq/L (21.0-32.0); Chloride 100 meq/L (98-107); Glomerular Filtration Rate Greater Than 89 mL/min (>89); Glucose,Random 111 mg/dL (74-106); Sodium 133 meq/L (136-145)
[2018-04-11 09:21] LABS: Cholesterol 201 mg/dL (120-200); Triglycerides 143 mg/dL (42-150)
[2018-04-11 09:23] LABS: Chol/HDL Ratio 2.25 Ratio; LDL Cholesterol,Calculated 83 mg/dL (0-99)
[2018-04-11] MEDS: Folic Acid 1 MG Tablet PO SCH (09:54)
--- NOTE | 2018-04-11 10:54 | P.CONFP ---
Addendum entered and electronically signed by Dacia Prescott MD, R1 04/11/18 10:58: Assessment and plan: 48-year-old male past medical history of COPD hypertension and alcohol abuse presented to ED under Chan act. During this hospitalization treated for alcohol and heroin withdrawal with Ativan and nutritional supplements. Also started on azithromycin for possible exacerbation of COPD. Hepatitis panel pending. HIV screening negative. Monitoring CBC for low white blood cell count. Original Note: History of Present Illness Service: Family Medicine <Dacia Prescott - 04/11/18 10:53> Consult date: 04/11/18 <Dacia Prescott - 04/11/18 10:53> Reason for Consult: Medical Management <Dacia Prescott - 04/11/18 10:53> Primary Care Provider: UNKNOWN <Franklin Bhatti - 04/11/18 19:05> UNKNOWN <Dacia Prescott 04/11/18 10:53> Chief Complaint: Withdrawl symptoms <Dacia Prescott 04/11/18 10:53> History of Present Illness: 48-year-old male past medical history COPD, hypertension, alcohol abuse presented to the ED via EMS under [place] act by police. According to patient he participated in by March and had 2 drinks of vodka at the bar. He then took his bike home watched a movie [place] and had another fourth handle of vodka. He went to bed. He does not remember anything after that. When he woke up he was on the floor off the bed. His step daughter Cristine found him and called his son who then called EMS to bring him in. He thinks he may have vomited during this time. He does not remember how long he lost consciousness for. Does not remember hitting his head. He denied any changes in vision or headache at the time. He noted a laceration on his forehead and chin. When EMS arrived he said he got combative and would not let them restrain him. Patient was a part of alcohols Anonymous and sober for 1 year. He previously used alcohol for 3 years drinking about 1 gallon of vodka a day. When his sponsor relapsed he relapsed about 3 weeks ago. He attended [facility] as well as [facility] He currently lives in [facility] in a trailer with his stepdaughter. He drinks vodka daily and uses heroin every couple of days by IV. He denies sharing any needles. He has been using heroin for 5 months. He also smokes 2 packs a day for 20 years. 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 Patient was managed by family medicine team until yesterday then was discharged to the psychiatric services given improved CIWA scores. Family medicine team was consulted for medical management. Medical history: Hypertension COPD Surgical history: Fusion of neck 20 years ago Allergies: None Medications: Clonidine 0.5 mg/day Family medical history: Diabetes, brother bipolar Today the patient complains of continued diarrhea, tremors, anxiety, and chills. CIWA scores overnight were 4, 13, 13, 12. Patient has continued cough but denies any shortness of breath or chest pain. Denies any pain. Denies any thoughts of hurting himself, others. Denies any hallucinations visual or auditory or tactile. <Dacia Prescott 04/11/18 10:53> Review of Systems Constitutional: Reports chills, Reports fever(s) <Dacia Prescott 04/11/18 10:53> Eyes: Denies blurry vision, Denies change in vision <Dacia Prescott 10:53> Ears, Nose, Mouth, and Throat: Reports poor balance, Denies throat swelling < Dacia Prescott 04/11/18 10:53> Cardiovascular: Reports excessive sweating, Denies chest pain <Dacia Prescott 04/11/18 10:53> Respiratory: Reports cough <Dacia Prescott 04/11/18 10:53> Gastrointestinal: Reports abdominal pain, Reports loose stools, Denies vomiting <Dacia Prescott 04/11/18 10:53> Genitourinary: Denies urinary urgency <Dacia Prescott 04/11/18 10:53> Musculoskeletal: Denies tingling <Dacia Prescott 04/11/18 10:53> Skin/Breast: Denies rash <Dacia Prescott 04/11/18 10:53> Neurologic: Reports unsteadiness, Denies loss of vision <Dacia Prescott 11/21 10:53> Psychiatric: Denies hearing things others do not hear, Denies tactile hallucinations, Denies thoughts of hurting/killing others, Denies thoughts of hurting/killing yourself <Dacia Prescott 04/11/18 10:53> Endocrine: Reports excessive sweating <Dacia Prescott 04/11/18 10:53> Allergic/Immunologic: Denies hives <Dacia Prescott 04/11/18 10:53> PMFSH - History History Provided By: Patient <KenyonDacia James 04/11/18 10:53> - Medical History Medical History: Medical History (Last Reviewed 04/11/18 @ 10:24 by Dacia Prescott MD, R1) COPD (chronic obstructive pulmonary disease) HTN (hypertension) Surgical history unknown <Franklin Bhatti 04/11/18 19:05> Medical History (Last Reviewed 04/11/18 @ 10:24 by Dacia Prescott MD, R1) COPD (chronic obstructive pulmonary disease) HTN (hypertension) Surgical history unknown <Dacia Prescott 04/11/18 10:53> - Surgical History Surgical History: Surgical History (Last Reviewed 04/10/18 @ 16:15 by Krista Snyder, RN) No pertinent past surgical history <Franklin Bhatti 04/11/18 19:05> Surgical History (Last Reviewed 04/10/18 @ 16:15 by Krista Snyder, RN) No pertinent past surgical history <Dacia Prescott 04/11/18 10:53> - Family History Family History: Family History (Last Reviewed 04/11/18 @ 10:24 by Dacia Prescott MD, R1) Other Diabetes <Franklin Bhatti 04/11/18 19:05> Family History (Last Reviewed 04/11/18 @ 10:24 by Dacia Prescott MD, R1) Other Diabetes <Dacia Prescott 04/11/18 10:53> - Tobacco History Second Hand Smoke Exposure: Yes <Dacia Prescott 04/11/18 10:53> Tobacco Use In Past 30 Days: Yes <Dacia Prescott 04/11/18 10:53> Smoking Status: Current every day smoker <Dacia Prescott 04/11/18 10:53> Tobacco Type: Cigarettes <Dacia Prescott 04/11/18 10:53> - Alcohol History How Often Do You Have a Drink Containing Alcohol: 4 or more times a week < Dacia Prescott Nelson - 04/11/18 10:53> - Substance Use History Substance History: Active Abuse <KenyonDacia Damon - 04/11/18 10:53> - Substance Use Type Heroin Status: Active <Dacia Prescott Nelson - 04/11/18 10:53> Route Used: Inhalation <KenyonDacia Damon - 04/11/18 10:53> Frequency: daily <KenyonDacia James 04/11/18 10:53> Reason for Use: Calm Down <KenyonDacia Damon - 04/11/18 10:53> Medications and Allergies Allergies Allergy/AdvReac Type Severity Reaction Status Date / Time No Known Allergies Allergy Uncoded 02/28/17 23:01 <Franklin Bhatti 04/11/18 19:05> Home Medications Medication Instructions Recorded Confirmed Type clonidine HCl 04/06/18 History <Franklin Bhatti 04/11/18 19:05> Active Medications: Active Medications Al Hydrox/Mg Hydrox/Simethicone (Mag-Al Plus Susp Liq) 30 ml PO Q6H PRN PRN Reason: DYSPEPSIA Al Hydroxide/Mg Hydroxide (Milk Of Magnesia Liq) 30 ml PO Q12H PRN PRN Reason: Mild Constipation Albuterol (Duoneb Neb (Phil)) 1 ampul NEB Q6HR NEB PHIL Last Admin: 04/11/18 16:19 Dose: 1 ampul Azithromycin (Zithromax) 250 mg PO DAILY [facility] Stop: 04/14/18 12:00 Last Admin: 04/11/18 15:48 Dose: 250 mg Clonidine HCl (Catapres) 0.2 mg PO TID [facility] Last Admin: 04/11/18 17:28 Dose: 0.2 mg Clonidine HCl (Catapres) 0.1 mg PO Q6H PRN PRN Reason: SEE LABEL COMMENTS Diphenhydramine HCl (Benadryl) 50 mg PO HS PRN PRN Reason: INSOMNIA Flumazenil (Romazecon Inj) 0.2 mg IV.PUSH Q1M PRN PRN Reason: OVERSEDATION Folic Acid (Folic Acid) 1 mg PO DAILY [facility] Last Admin: 04/11/18 09:54 Dose: 1 mg Hydroxyzine HCl (Atarax) 50 mg PO Q6H PRN PRN Reason: ANXIETY Loperamide HCl (Imodium) 2 mg PO Q6H PRN PRN Reason: DIARRHEA Lorazepam (Ativan) 2 mg PO Q2H PRN PRN Reason: for CIWA 11-14 Last Admin: 04/11/18 09:54 Dose: 2 mg Lorazepam (Ativan Inj) 2 mg IV.PUSH Q2H PRN PRN Reason: for CIWA 11-14 Last Admin: 04/11/18 18:18 Dose: 2 mg Lorazepam (Ativan Inj) 2 mg IV.PUSH Q1H PRN PRN Reason: for CIWA 15-20 Last Admin: 04/11/18 15:48 Dose: 2 mg Lorazepam (Ativan Inj) 2 mg IV.PUSH Q15M PRN PRN Reason: for CIWA > 20 Lorazepam (Ativan Inj) 1 mg IV.PUSH Q4H PRN PRN Reason: for CIWA 8-10 Lorazepam (Ativan) 1 mg PO Q4H PRN PRN Reason: for CIWA 8-10 Metoprolol Tartrate (Lopressor) 25 mg PO BID@0800,1999 [facility] Multivitamins (Theragran) 1 tab PO DAILY [facility] Last Admin: 04/11/18 09:54 Dose: 1 tab Potassium Chloride (K-Dur) 20 meq PO BID [facility] Last Admin: 04/11/18 15:48 Dose: 20 meq Thiamine HCl (Vitamin B1) 100 mg PO DAILY [facility] Last Admin: 04/11/18 09:54 Dose: 100 mg <Franklin Bhatti L - 04/11/18 19:05> Active Medications Al Hydrox/Mg Hydrox/Simethicone (Mag-Al Plus Susp Liq) 30 ml PO Q6H PRN PRN Reason: DYSPEPSIA Al Hydroxide/Mg Hydroxide (Milk Of Magnesia Liq) 30 ml PO Q12H PRN PRN Reason: Mild Constipation Diphenhydramine HCl (Benadryl) 50 mg PO HS PRN PRN Reason: INSOMNIA Flumazenil (Romazecon Inj) 0.2 mg IV.PUSH Q1M PRN PRN Reason: OVERSEDATION Folic Acid (Folic Acid) 1 mg PO DAILY [facility] Last Admin: 04/11/18 09:54 Dose: 1 mg Hydroxyzine HCl (Atarax) 50 mg PO Q6H PRN PRN Reason: ANXIETY Lorazepam (Ativan) 2 mg PO Q2H PRN PRN Reason: for CIWA 11-14 Last Admin: 04/11/18 09:54 Dose: 2 mg Lorazepam (Ativan Inj) 2 mg IV.PUSH Q2H PRN PRN Reason: for CIWA 11-14 Lorazepam (Ativan Inj) 2 mg IV.PUSH Q1H PRN PRN Reason: for CIWA 15-20 Lorazepam (Ativan Inj) 2 mg IV.PUSH Q15M PRN PRN Reason: for CIWA > 20 Lorazepam (Ativan Inj) 1 mg IV.PUSH Q4H PRN PRN Reason: for CIWA 8-10 Lorazepam (Ativan) 1 mg PO Q4H PRN PRN Reason: for CIWA 8-10 Multivitamins (Theragran) 1 tab PO DAILY [facility] Last Admin: 04/11/18 09:54 Dose: 1 tab Thiamine HCl (Vitamin B1) 100 mg PO DAILY [facility] Last Admin: 04/11/18 09:54 Dose: 100 mg <Dacia Prescott C - 04/11/18 10:53> Exam Vital signs: Vital Signs 04/11/18 06:00 04/11/18 16:19 04/11/18 17:53 Temperature 98.2 F 104 F H Pulse Rate 85 71 92 H Respiratory Rate 16 18 16 Blood Pressure 159/92 H 143/102 H Pulse Oximetry 96 97 Intake & Output 04/11/18 04/11/18 04/12/18 06:59 18:59 06:59 Intake Total 360 / 360 480 / 480 Balance 360 / 360 480 / 480 Intake: Oral 360 / 360 480 / 480 Other: # Voids 1 4 <Franklin Bhatti L - 04/11/18 19:05> Vital Signs 04/10/18 16:19 04/10/18 17:42 04/11/18 06:00 Temperature 99.4 F 99.4 F 98.2 F Pulse Rate 92 H 92 H 85 Respiratory Rate 16 16 16 Blood Pressure 165/95 H 165/95 H 159/92 H Pulse Oximetry 94 L 96 Intake & Output 04/10/18 04/11/18 04/11/18 18:59 06:59 18:59 Intake Total 360 / 360 Balance 360 / 360 Weight 63.4 kg Intake: Oral 360 / 360 Other: # Voids 1 Weight On Admission 63.4 kg <Dacia Prescott - 04/11/18 10:53> Narrative: GENERAL: SKIN: Warm and dry. Laceration on R forehead healing with some dried blood and scabbing; sutures in place HEAD: Normocephalic. EYES: No scleral icterus. No injection or drainage. NECK: Supple, trachea midline. No JVD or lymphadenopathy. CARDIOVASCULAR: Regular rate and rhythm without murmurs, gallops, or rubs. RESPIRATORY: Breath sounds equal bilaterally. No accessory muscle use. GASTROINTESTINAL: Abdomen soft, non-tender, nondistended. Active bowel sounds. MUSCULOSKELETAL: No cyanosis, or edema. Neurological: oriented X3, moving all extremities, normal speech, tremors (Mild , improving). Absent: nystagmus, asterixis <Dacia Prescott - 04/11/18 10:53> Results - Labs Result diagrams: 04/11/18 08:21 <Franklin Bhatti - 04/11/18 19:05> Abnormal lab results 04/11/18 Range/Units 08:21 Sodium 133 L (136-145) meq/L Potassium 3.0 L (3.5-5.1) meq/L Random Glucose 111 H (74-106) mg/dL Cholesterol 201 H (120-200) mg/dL HDL Cholesterol 89.0 H (40.0-60.0) mg/dL [facility] 04/11/18 08:21 Sodium 133 L Potassium 3.0 L Chloride 100 Carbon Dioxide 22.1 BUN 10 Creatinine 0.70 Calcium 8.8 <Franklin Bhatti - 04/11/18 19:05> Abnormal lab results 04/11/18 Range/Units 08:21 Sodium 133 L (136-145) meq/L Potassium 3.0 L (3.5-5.1) meq/L Random Glucose 111 H (74-106) mg/dL Cholesterol 201 H (120-200) mg/dL HDL Cholesterol 89.0 H (40.0-60.0) mg/dL [facility] 04/11/18 08:21 Sodium 133 L Potassium 3.0 L Chloride 100 Carbon Dioxide 22.1 BUN 10 Creatinine 0.70 Calcium 8.8 <Dacia Prescott - 04/11/18 10:53> Assessment and Plan - Assessment (1) Alcohol withdrawal Code(s): F10.239 - Alcohol dependence with withdrawal, unspecified Status: Acute (2) Acute opioid withdrawal Code(s): F11.23 - Opioid dependence with withdrawal Status: Acute (3) Hypertension Code(s): I10 - Essential (primary) hypertension Status: Chronic (4) Acute exacerbation of chronic obstructive pulmonary disease (COPD) Code(s): J44.1 - Chronic obstructive pulmonary disease with (acute) exacerbation Status: Acute (5) Acquired pancytopenia Code(s): D61.818 - Other pancytopenia Status: Acute (6) Suicidal ideation Code(s): R45.851 - Suicidal ideations Status: Acute (7) Nutrition, metabolism, and development symptoms Code(s): R63.8 - Other symptoms and signs concerning food and fluid intake Status: Acute <Franklin Bhatti - 04/11/18 19:05> (1) Alcohol withdrawal Code(s): F10.239 - Alcohol dependence with withdrawal, unspecified Status: Acute Plan: Patient reports drinking 1 gallon of vodka every day. On admission AST is elevated 2 and ALT 137. Alk phos 243. Urine drug screen was negative. Serum alcohol 454. Patient having mild tremors and diarrhea as well as anxiety. CIWA scores 4, 13, 13, 12 CIWA protocol -Ativan as needed Folic acid thiamine and multivitamin -hepatitis panel -Case management consult -Imodium (2) Acute opioid withdrawal Code(s): F11.23 - Opioid dependence with withdrawal Status: Acute Plan: Patient uses IV heroin every couple of days. See plan above. (3) Hypertension Code(s): I10 - Essential (primary) hypertension Status: Chronic Plan: Known hypertension on clonidine 0.2 daily. Pressures today 160s over 90s. -Increase home clonidine to 0.2 twice daily (4) Acute exacerbation of chronic obstructive pulmonary disease (COPD) Code(s): J44.1 - Chronic obstructive pulmonary disease with (acute) exacerbation Status: Acute Plan: Reports worsening cough. Mild exacerbation of COPD DDX aspiration pneumonia. Not on home oxygen Received 2 doses of azithromycin to 250 mg consider continuing -DuoNeb scheduled every 6 hr while awake (5) Acquired pancytopenia Code(s): D61.818 - Other pancytopenia Status: Acute Plan: Decreased platelets and white blood cell possibly due to alcohol, nutrition, B12 /folate. Mild neutropenia. No fevers recorded -Labs: CBC -Consider peripheral smear (6) Suicidal ideation Code(s): R45.851 - Suicidal ideations Status: Acute Plan: During hospitalization according to chart review, patient stated he wanted to drink himself to . Denies any current suicidal ideations Psychiatry primary team Under Chan act (7) Nutrition, metabolism, and development symptoms Code(s): R63.8 - Other symptoms and signs concerning food and fluid intake Status: Acute Plan: Diet: Regular, folic acid, thiamine, multivitamin Electrolytes: Replete as needed DVT prophylaxis: SCDs and ambulation Disposition: Unknown at this time Discussed with Dr. hBatti and Dr. Link <Dacia Prescott - 04/11/18 10:15> - Attending Attestation The exam, history, and the medical decision-making described in the above note were completed with the assistance of the resident physician. I reviewed and agree with the findings presented. I attest that I had a [id number] encounter with the patient on the same day, and personally performed and documented my assessment and findings in the medical record. I evaluated patient alongside the resident team. We are being consulted for medical management of this patient with alcohol abuse, alcohol withdrawal, suicidal ideation, opioid withdrawal, heroin IV drug use. CIWA protocol in place, Ativan as needed. Counseled patient regarding alcohol abuse. Discussed AA meetings and will help with additional outpatient resources for alcohol abuse. Currently being managed on med-psych floor. Currently denies no suicidal or homicidal ideation. No hallucinations/delusions. Withdrawals present but gradually improving. Will treat nausea and diarrhea symptomatically. <Franklin Bhatti - 04/11/18 19:05>
[2018-04-11] MEDS ORDERED: Loperamide 2 MG Capsule PO PRN (11:10)
[2018-04-11 15:47] LABS: Hemoglobin A1c 5.6 % (4.3-6.0)
[2018-04-11] MEDS: Azithromycin 250 MG Tablet PO SCH (15:48)
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
[2018-04-11] MEDS: Metoprolol Tartrate 25 MG Tablet PO SCH (20:50)
[2018-04-12 06:59] LABS: Baso % (Auto) 0.1 % (0.0-2.0); Eos % (Auto) 0.5 % (0.0-4.0); Hematocrit 42.1 % (39.0-51.0); Hemoglobin 14.5 gm/dL (13.0-17.0); Lymph # (Auto) 0.9 th/mm3 (1.0-4.8); Lymph % (Auto) 14.1 % (9.0-44.0); Mean Corpuscular HGB Conc 34.5 % (32.0-36.0); Mean Corpuscular Hemoglobin 27.2 pg (27.0-34.0); Mean Corpuscular Volume 78.7 fL (80.0-100.0); Mean Platelet Volume 9.4 fL (7.0-11.0); Mono # (Auto) 0.6 th/mm3 (0.0-0.9); Mono % (Auto) 10.4 % (0.0-8.0); Neut # (Auto) 4.6 th/mm3 (1.8-7.7); Neut % (Auto) 74.9 % (16.0-70.0); Platelet Count 108 th/mm3 (150-450); Red Blood Count 5.34 mil/mm3 (4.50-5.90); Red Cell Distribution Width 20.7 % (11.6-17.2); White Blood Count 6.1 th/mm3 (4.0-11.0)
[2018-04-12 07:39] LABS: Anion Gap 11 meq/L (5-15); Blood Urea Nitrogen 13 mg/dL (7-18); Carbon Dioxide 25.3 meq/L (21.0-32.0); Chloride 95 meq/L (98-107); Glomerular Filtration Rate Greater Than 89 mL/min (>89); Glucose,Random 103 mg/dL (74-106); Sodium 131 meq/L (136-145)
[2018-04-12 08:09] LABS: Hepatitits B Surface Antigen Nonreactive (Nonreactive)
[2018-04-12 08:24] LABS: Hepatitis A IgM Antibody Nonreactive (Nonreactive)
[2018-04-12] MEDS: Azithromycin 250 MG Tablet PO SCH (09:58)
[2018-04-12] MEDS: Folic Acid 1 MG Tablet PO SCH (09:58)
--- NOTE | 2018-04-12 11:29 | P.PNPSY ---
Subjective Remarks: Patient seen for follow-up, chart reviewed. Discussion with nursing staff reported that patient eating and drinking more now continues to have tremor and continues to receive Ativan per [facility] protocol. Patient was found sitting in hospital bed noted to be clean and well groomed but continues to be noted to have slight tremor but reporting improved appetite was able to eat more today stating he slept much better with the addition of Ativan in the evening. Patient states that he "screwed up" stating that he had made the suicidal statements while he was drunk but has no intention of hurting himself nor having any suicide ideations at this time. He states his mood has been "good" stating that he was visited by his stepdaughter where he states his tremendous support system as well as been having been visited by his earlier this morning. He denies any perceptional services, denies any suicidal homicidal ideations at this time. Review of Systems All other systems reviewed negative except as stated in HPI Mental Status Examination Appearance: Appropriate Consciousness: Alert Orientation: Person, Place, Date/Time Speech: Unremarkable Fund of Knowledge: Inadequate Attention and Concentration: Adequate Memory: Impaired (Surrounding events prior to his admission) Mood: Good Affect: Appropriate Thought Process & Associations: Intact, Linear Thought Content: Appropriate Hallucination Type: None Delusion Type: None Suicidal Ideation: No Suicidal Plan: No Suicidal Intention: No Homicidal Ideation: No Homicidal Plan: No Homicidal Intention: No Insight: Fair Judgment: Impulsive Assessment and Plan - Assessment (1) Alcohol abuse with alcohol-induced mood disorder Code(s): F10.14 - Alcohol abuse with alcohol-induced mood disorder Status: Acute - Plan Plan: Patient currently noted with improvement in withdrawal symptoms but continues to require Ativan as per protocol. Patient mood noted to be stable denying any suicidal ideation. Patient likely for discharge tomorrow once patient no longer requiring Ativan for withdrawal symptoms. We will continue [facility] protocol we will continue recommendations as per hospitalist recommendations and pending medical clearance. Continue to monitor mood and behavior. Discharge planning in progress. Justification for Continued Inpatient Stay: At risk of further decompensation at lower level care.
[2018-04-12] MEDS: Metoprolol Tartrate 25 MG Tablet PO SCH (12:07)
--- NOTE | 2018-04-12 12:19 | XR ---
EXAM DATE: 04/12/2018 12:07 PM EST AGE/SEX: 48 years / Male INDICATIONS: . Fever CLINICAL DATA: This is the patient's initial encounter. Patient reports that signs and symptoms have been present for 1 day and indicates a pain score of 0/10. MEDICAL/SURGICAL HISTORY: Chronic obstructive pulmonary disease. Hypertension. None. [place] [facility] [place]. . FINDINGS: PA and lateral views of the chest demonstrate the lungs to be symmetrically aerated without evidence of mass, infiltrate or effusion. The cardiomediastinal contours are unremarkable. Osseous structures are intact. CONCLUSION: No evidence of acute cardiopulmonary process. Electronically signed by: Wood Jolly MD 04/12/2018 12:18 PM EST
--- NOTE | 2018-04-12 13:11 | P.PNFP ---
Subjective Interval history: Patient was seen and examined at bedside this morning by pending family medicine team. Patient reports that diarrhea, cough and tremors are improving. Yesterday afternoon patient had a temperature of 101F, informed this morning. Patient had a C was scores of 13, 13, 11, 13, 5, 6, 12 overnight and required Ativan 2 mg x2. Patient also with elevated blood pressures and clonidine medication was increased to 3 times daily. Patient reports he is feeling well and would like information about rehab facilities. <Gerard Link D - 04/12/18 13:23> Results - Labs Result diagrams: 04/13/18 07:24 04/13/18 07:24 <Franklin Bhatti - 04/13/18 22:33> Abnormal lab results 04/13/18 04/13/18 Range/Units 07:24 07:24 MCV 78.8 L (80.0-100.0) fL RDW 20.9 H (11.6-17.2) % Plt Count 114 L (150-450) th/mm3 Neut % (Auto) 71.0 H (16.0-70.0) % [place] % (Auto) 16.7 H (0.0-8.0) % Lymph # (Auto) 0.7 L (1.0-4.8) th/mm3 [place] # (Auto) 1.1 H (0.0-0.9) th/mm3 Sodium 129 L (136-145) meq/L Chloride 96 L (98-107) meq/L Carbon Dioxide 20.5 L (21.0-32.0) meq/L Total Bilirubin 1.3 H (0.2-1.0) mg/dL AST 41 H (15-37) U/L Alkaline Phosphatase 187 H (45-117) U/L Albumin 3.2 L (3.4-5.0) g/dL Short CBC 04/13/18 Range/Units 07:24 WBC 6.5 (4.0-11.0) th/mm3 Hgb 13.9 (13.0-17.0) gm/dL Hct 40.4 (39.0-51.0) % Plt Count 114 L (150-450) th/mm3 BMP 04/13/18 07:24 Sodium 129 L Potassium 3.9 Chloride 96 L Carbon Dioxide 20.5 L BUN 11 Creatinine 0.71 Calcium 9.0 Liver Function 04/13/18 Range/Units 07:24 Total Bilirubin 1.3 H (0.2-1.0) mg/dL AST 41 H (15-37) U/L ALT 69 (12-78) U/L Alkaline Phosphatase 187 H (45-117) U/L Albumin 3.2 L (3.4-5.0) g/dL <Franklin Bhatti L - 04/13/18 22:33> Abnormal lab results 04/12/18 04/12/18 Range/Units 06:10 06:10 MCV 78.7 L (80.0-100.0) fL RDW 20.7 H (11.6-17.2) % Plt Count 108 L D (150-450) th/mm3 Neut % (Auto) 74.9 H (16.0-70.0) % [place] % (Auto) 10.4 H (0.0-8.0) % Lymph # (Auto) 0.9 L (1.0-4.8) th/mm3 Sodium 131 L (136-145) meq/L Chloride 95 L (98-107) meq/L Short CBC 04/12/18 Range/Units 06:10 WBC 6.1 (4.0-11.0) th/mm3 Hgb 14.5 (13.0-17.0) gm/dL Hct 42.1 (39.0-51.0) % Plt Count 108 L D (150-450) th/mm3 BMP 04/12/18 06:10 Sodium 131 L Potassium 4.0 D Chloride 95 L Carbon Dioxide 25.3 BUN 13 Creatinine 0.83 Calcium 9.0 <Gerard Link - 04/12/18 13:11> - Imaging Impressions Chest X-Ray 04/12/18 00:00 CONCLUSION: No evidence of acute cardiopulmonary process. <Gerard Link - 04/12/18 13:11> Physical Exam Vital signs: Vital Signs 04/13/18 05:28 Temperature 97.8 F Pulse Rate 100 H Respiratory Rate 16 Blood Pressure 158/90 H Pulse Oximetry 97 Intake & Output 04/13/18 04/13/18 04/14/18 06:59 18:59 06:59 Intake Total 480 / 480 120 / 120 Output Total 2 / 2 Balance 478 / 478 120 / 120 Intake: Oral 480 / 480 120 / 120 Output: Urine 2 / 2 <Franklin Bhatti - 04/13/18 22:33> Vital Signs 04/11/18 16:19 04/11/18 17:53 04/11/18 18:20 Temperature 104 F H 100.3 F H Pulse Rate 71 92 H Respiratory Rate 18 16 Blood Pressure 143/102 H Pulse Oximetry 97 04/12/18 05:29 Temperature 98.2 F Pulse Rate 81 Respiratory Rate 16 Blood Pressure 158/98 H Pulse Oximetry 96 Intake & Output 04/11/18 04/12/18 04/12/18 18:59 06:59 18:59 Intake Total 480 / 480 480 / 480 320 / 320 Balance 480 / 480 480 / 480 320 / 320 Intake: Oral 480 / 480 480 / 480 320 / 320 Other: # Voids 4 1 <NikolayGerard D - 04/12/18 13:11> - Constitutional no acute distress <Gerard Link D - 04/12/18 13:23> - Routine HEENT Exam Head: Present: normocephalic <FernandoadalbertoGerard monson D - 04/12/18 13:23> Eye: Present: EOMI, PERRL <FernandoadalbertoGerard monson D - 04/12/18 13:23> ENT: Present: mucous membranes moist <FernandoadalbertoGerard monson D - 04/12/18 13:23> - Routine Neck Exam Present: supple, full ROM <Gerard Link D - 04/12/18 13:23> - Routine Respiratory Exam Present: CTA bilaterally. Absent: accessory muscle use <Gerard Link D - 12/21 13:23> - Routine Cardiovascular Exam Present: RRR, S1, S2. Absent: murmur, gallop, rubs <Ancelmo Linkly D - 13:23> - Routine Abdominal Exam Present: soft, normoactive bowel sounds. Absent: tenderness <Gerard Link D - 04/12/18 13:23> - Routine Extremities Exam Present: pulses intact. Absent: cyanosis, edema, calf tenderness <Gerard Link D - 04/12/18 13:23> - Routine Skin Exam Present: scars (Healing right chin laceration with stitches in place and small healing laceration across the right side of forehead.) <Gerard Link D - 12/21 13:23> - Routine Neurological Exam Present: alert, oriented X3 <Gerard Link - 04/12/18 13:23> - Routine Psychiatric Exam Present: normal affect, cooperative. Absent: suicidal ideation, homicidal ideation, auditory hallucinations, visual hallucinations <Gerard Link D - 13:23> Assessment and Plan - Assessment (1) Alcohol withdrawal Code(s): F10.239 - Alcohol dependence with withdrawal, unspecified Status: Acute (2) Acute opioid withdrawal Code(s): F11.23 - Opioid dependence with withdrawal Status: Acute (3) Hypertension Code(s): I10 - Essential (primary) hypertension Status: Chronic (4) Acute exacerbation of chronic obstructive pulmonary disease (COPD) Code(s): J44.1 - Chronic obstructive pulmonary disease with (acute) exacerbation Status: Acute (5) Acquired pancytopenia Code(s): D61.818 - Other pancytopenia Status: Resolved (6) Suicidal ideation Code(s): R45.851 - Suicidal ideations Status: Acute (7) Nutrition, metabolism, and development symptoms Code(s): R63.8 - Other symptoms and signs concerning food and fluid intake Status: Acute <Franklin Bhatti - 04/13/18 22:33> (1) Alcohol withdrawal Code(s): F10.239 - Alcohol dependence with withdrawal, unspecified Status: Acute Plan: Patient reports drinking 1 gallon of vodka every day. On admission liver function tests elevated. Alk phos 243. Urine drug screen was negative. Serum alcohol 454. Patient having mild tremors and diarrhea as well as anxiety, improving. CIWA scores 13, 13, 11, 13, 5, 6, 12 overnight CIWA protocol -Ativan as needed Folic acid thiamine and multivitamin -hepatitis panel: Nonreactive -Case management consult to help assist with rehab facilities as patient is interested in quitting alcohol and drug use. -Imodium (2) Acute opioid withdrawal Code(s): F11.23 - Opioid dependence with withdrawal Status: Acute Plan: Patient uses IV heroin every couple of days. See plan above. (3) Hypertension Code(s): I10 - Essential (primary) hypertension Status: Chronic Plan: Known hypertension on clonidine 0.2 daily. Pressures today 140s-150s/90s 200s -Increase home clonidine to 0.2 three times daily Clonidine 0.1mg PO prn BP >180/100 Continue to monitor (4) Acute exacerbation of chronic obstructive pulmonary disease (COPD) Code(s): J44.1 - Chronic obstructive pulmonary disease with (acute) exacerbation Status: Acute Plan: Reports worsening cough. Mild exacerbation of COPD DDX aspiration pneumonia. Not on home oxygen Received 2 doses of azithromycin to 250 mg consider continuing -DuoNeb scheduled every 6 hr while awake (5) Acquired pancytopenia Code(s): D61.818 - Other pancytopenia Status: Acute Plan: Decreased platelets and white blood cell possibly due to alcohol, nutrition, B12 /folate. Mild neutropenia. No fevers recorded -Labs: CBC, Improving -Consider peripheral smear (6) Suicidal ideation Code(s): R45.851 - Suicidal ideations Status: Acute Plan: During hospitalization according to chart review, patient stated he wanted to drink himself to . Denies any current suicidal or homicidal ideations Psychiatry primary team Anticipate discharge tomorrow once patient is not requiring Ativan for withdrawal symptoms and pending clearance from medical team. Will need to clarify with psychiatric team if Chan act has been lifted. (7) Nutrition, metabolism, and development symptoms Code(s): R63.8 - Other symptoms and signs concerning food and fluid intake Status: Acute Plan: Diet: Regular, folic acid, thiamine, multivitamin Electrolytes: Replete as needed DVT prophylaxis: SCDs and ambulation Disposition: Unknown at this time Discussed with Dr. Bhatti and Dr. Link <Gerard Link - 04/12/18 13:13> - Attending Attestation The exam, history, and the medical decision-making described in the above note were completed with the assistance of the resident physician. I reviewed and agree with the findings presented. I attest that I had a [id number] encounter with the patient on the same day, and personally performed and documented my assessment and findings in the medical record. <Franklin Bhatti - 04/13/18 22:33>
[2018-04-12 18:34] VITALS: O2SAT 97
[2018-04-13 05:30] VITALS: BP 158/90; PULSE 100; RESP 16; TEMP 97.8
[2018-04-13 08:39] LABS: Baso % (Auto) 0.3 % (0.0-2.0); Eos # (Auto) 0.1 th/mm3 (0.0-0.4); Eos % (Auto) 0.9 % (0.0-4.0); Hematocrit 40.4 % (39.0-51.0); Hemoglobin 13.9 gm/dL (13.0-17.0); Lymph # (Auto) 0.7 th/mm3 (1.0-4.8); Lymph % (Auto) 11.1 % (9.0-44.0); Mean Corpuscular HGB Conc 34.3 % (32.0-36.0); Mean Corpuscular Volume 78.8 fL (80.0-100.0); Mean Platelet Volume 8.7 fL (7.0-11.0); Mono # (Auto) 1.1 th/mm3 (0.0-0.9); Mono % (Auto) 16.7 % (0.0-8.0); Neut # (Auto) 4.6 th/mm3 (1.8-7.7); Platelet Count 114 th/mm3 (150-450); Red Blood Count 5.13 mil/mm3 (4.50-5.90); Red Cell Distribution Width 20.9 % (11.6-17.2); White Blood Count 6.5 th/mm3 (4.0-11.0)
[2018-04-13 09:06] LABS: Alanine Aminotransferase 69 U/L (12-78); Albumin 3.2 g/dL (3.4-5.0); Anion Gap 13 meq/L (5-15); Blood Urea Nitrogen 11 mg/dL (7-18); Carbon Dioxide 20.5 meq/L (21.0-32.0); Chloride 96 meq/L (98-107); Glucose,Random 92 mg/dL (74-106); Potassium 3.9 meq/L (3.5-5.1); Sodium 129 meq/L (136-145)
[2018-04-13 09:08] LABS: Glomerular Filtration Rate Greater Than 89 mL/min (>89); Total Protein 7.3 g/dL (6.4-8.2)
[2018-04-13 09:09] LABS: Alkaline Phosphatase 187 U/L (45-117); Aspartate Aminotransferase 41 U/L (15-37)
[2018-04-13] MEDS: Azithromycin 250 MG Tablet PO SCH (10:01)
[2018-04-13] MEDS: Folic Acid 1 MG Tablet PO SCH (10:01)
--- NOTE | 2018-04-13 12:38 | P.PNFP ---
Subjective Interval history: Patient seen and examined at bedside this morning. No acute events overnight. Patient reports that he feels well and would like to go back home. He states that he is interested in drug rehab and will try to go to [facility] see in order to obtain some help with his drug and alcohol abuse. Denies any diarrhea, fever, chills, chest pain or shortness of breath. Patient reports his cough is improving. Denies any suicidal or homicidal ideation. Patient CIWA scores overnight have been 12, 15, 0, 0, 0. He only required Ativan 1 mg x1 at 1329 yesterday. No Ativan was given overnight <Gerard Link D - 04/13/18 16:13> Results - Labs Result diagrams: 04/13/18 07:24 04/13/18 07:24 <Franklin Bhatti - 04/13/18 22:25> Abnormal lab results 04/13/18 04/13/18 Range/Units 07:24 07:24 MCV 78.8 L (80.0-100.0) fL RDW 20.9 H (11.6-17.2) % Plt Count 114 L (150-450) th/mm3 Neut % (Auto) 71.0 H (16.0-70.0) % [place] % (Auto) 16.7 H (0.0-8.0) % Lymph # (Auto) 0.7 L (1.0-4.8) th/mm3 [place] # (Auto) 1.1 H (0.0-0.9) th/mm3 Sodium 129 L (136-145) meq/L Chloride 96 L (98-107) meq/L Carbon Dioxide 20.5 L (21.0-32.0) meq/L Total Bilirubin 1.3 H (0.2-1.0) mg/dL AST 41 H (15-37) U/L Alkaline Phosphatase 187 H (45-117) U/L Albumin 3.2 L (3.4-5.0) g/dL Short CBC 04/13/18 Range/Units 07:24 WBC 6.5 (4.0-11.0) th/mm3 Hgb 13.9 (13.0-17.0) gm/dL Hct 40.4 (39.0-51.0) % Plt Count 114 L (150-450) th/mm3 BMP 04/13/18 07:24 Sodium 129 L Potassium 3.9 Chloride 96 L Carbon Dioxide 20.5 L BUN 11 Creatinine 0.71 Calcium 9.0 Liver Function 04/13/18 Range/Units 07:24 Total Bilirubin 1.3 H (0.2-1.0) mg/dL AST 41 H (15-37) U/L ALT 69 (12-78) U/L Alkaline Phosphatase 187 H (45-117) U/L Albumin 3.2 L (3.4-5.0) g/dL <Young,Franklin L - 04/13/18 22:25> Abnormal lab results 04/13/18 04/13/18 Range/Units 07:24 07:24 MCV 78.8 L (80.0-100.0) fL RDW 20.9 H (11.6-17.2) % Plt Count 114 L (150-450) th/mm3 Neut % (Auto) 71.0 H (16.0-70.0) % [place] % (Auto) 16.7 H (0.0-8.0) % Lymph # (Auto) 0.7 L (1.0-4.8) th/mm3 [place] # (Auto) 1.1 H (0.0-0.9) th/mm3 Sodium 129 L (136-145) meq/L Chloride 96 L (98-107) meq/L Carbon Dioxide 20.5 L (21.0-32.0) meq/L Total Bilirubin 1.3 H (0.2-1.0) mg/dL AST 41 H (15-37) U/L Alkaline Phosphatase 187 H (45-117) U/L Albumin 3.2 L (3.4-5.0) g/dL Short CBC 04/13/18 Range/Units 07:24 WBC 6.5 (4.0-11.0) th/mm3 Hgb 13.9 (13.0-17.0) gm/dL Hct 40.4 (39.0-51.0) % Plt Count 114 L (150-450) th/mm3 [facility] 04/13/18 07:24 Sodium 129 L Potassium 3.9 Chloride 96 L Carbon Dioxide 20.5 L BUN 11 Creatinine 0.71 Calcium 9.0 Liver Function 04/13/18 Range/Units 07:24 Total Bilirubin 1.3 H (0.2-1.0) mg/dL AST 41 H (15-37) U/L ALT 69 (12-78) U/L Alkaline Phosphatase 187 H (45-117) U/L Albumin 3.2 L (3.4-5.0) g/dL <Gerard Link D - 04/13/18 12:37> Physical Exam Vital signs: Vital Signs 04/13/18 05:28 Temperature 97.8 F Pulse Rate 100 H Respiratory Rate 16 Blood Pressure 158/90 H Pulse Oximetry 97 Intake & Output 04/13/18 04/13/18 04/14/18 06:59 18:59 06:59 Intake Total 480 / 480 120 / 120 Output Total 2 / 2 Balance 478 / 478 120 / 120 Intake: Oral 480 / 480 120 / 120 Output: Urine 2 / 2 <Franklin Bhatti L - 04/13/18 22:25> Vital Signs 04/12/18 18:31 04/13/18 05:28 Temperature 97.9 F 97.8 F Pulse Rate 70 100 H Respiratory Rate 17 16 Blood Pressure 166/112 H 158/90 H Pulse Oximetry 97 97 Intake & Output 04/12/18 04/13/18 04/13/18 18:59 06:59 18:59 Intake Total 1000 / 1000 480 / 480 120 / 120 Output Total 2 / 2 Balance 1000 / 1000 478 / 478 120 / 120 Intake: Oral 1000 / 1000 480 / 480 120 / 120 Output: Urine 2 / 2 Other: # Voids 2 <Gerard Link D - 04/13/18 12:37> - Constitutional no acute distress <Gerard Link D - 04/13/18 15:54> - Routine HEENT Exam Head: Present: normocephalic <Ancelmo Linkly D - 04/13/18 15:54> Eye: Present: EOMI, PERRL <Ancelmo Linkly D - 04/13/18 15:54> ENT: Present: mucous membranes moist <Ancelmo Linkly D - 04/13/18 15:54> - Routine Neck Exam Present: supple, full ROM. Absent: lymphadenopathy <Gerard Link D - 15:54> - Routine Respiratory Exam Present: CTA bilaterally. Absent: accessory muscle use <Gerard Link - 01/21 15:54> - Routine Cardiovascular Exam Present: RRR, S1, S2. Absent: murmur, gallop, rubs <Gerard Link 15:54> - Routine Abdominal Exam Present: soft, normoactive bowel sounds. Absent: tenderness, distended, rebound , guarding <Gerard Link 04/13/18 15:54> - Routine Extremities Exam Present: full ROM, pulses intact. Absent: cyanosis, edema, calf tenderness < Gerard Link - 04/13/18 15:54> - Routine Skin Exam Present: scars (Healing right chin laceration with stitches in place and small healing laceration across the right side of forehead) <Gerard Link - 04/13 15:54> - Routine Neurological Exam Present: alert, oriented X3, CN II-XII intact <Gerard Link 04/13/18 15: 54> - Routine Psychiatric Exam Present: normal affect. Absent: suicidal ideation, auditory hallucinations, visual hallucinations <Gerard Link 04/13/18 15:54> Assessment and Plan - Assessment (1) Alcohol withdrawal Code(s): F10.239 - Alcohol dependence with withdrawal, unspecified Status: Acute (2) Acute opioid withdrawal Code(s): F11.23 - Opioid dependence with withdrawal Status: Acute (3) Hypertension Code(s): I10 - Essential (primary) hypertension Status: Chronic (4) Acute exacerbation of chronic obstructive pulmonary disease (COPD) Code(s): J44.1 - Chronic obstructive pulmonary disease with (acute) exacerbation Status: Acute (5) Acquired pancytopenia Code(s): D61.818 - Other pancytopenia Status: Resolved (6) Suicidal ideation Code(s): R45.851 - Suicidal ideations Status: Acute (7) Nutrition, metabolism, and development symptoms Code(s): R63.8 - Other symptoms and signs concerning food and fluid intake Status: Acute <DavyFranklin Echo - 04/13/18 22:25> (1) Alcohol withdrawal Code(s): F10.239 - Alcohol dependence with withdrawal, unspecified Status: Acute Plan: Patient reports drinking 1 gallon of vodka every day. On admission liver function tests elevated. Alk phos 243. Urine drug screen was negative. Serum alcohol 454. Patient having mild tremors and diarrhea as well as anxiety, improving. Last CIWA scores were 0 x 3. LFTs downtrending -No Ativan given overnight Folic acid thiamine and multivitamin -hepatitis panel: Nonreactive -Case management consult to help assist with rehab facilities as patient is interested in quitting alcohol and drug use. Patient will be given information about attending [facility] for alcohol and drug abuse rehab. (2) Acute opioid withdrawal Code(s): F11.23 - Opioid dependence with withdrawal Status: Acute Plan: Patient uses IV heroin every couple of days. See plan above. (3) Hypertension Code(s): I10 - Essential (primary) hypertension Status: Chronic Plan: Known hypertension on clonidine 0.2 daily. Pressure slightly elevated during hospital stay. -Increase home clonidine to 0.2 three times daily Clonidine 0.1mg PO prn BP >180/100 Continue to monitor (4) Acute exacerbation of chronic obstructive pulmonary disease (COPD) Code(s): J44.1 - Chronic obstructive pulmonary disease with (acute) exacerbation Status: Acute Plan: Reports cough is improving and minimal sputum production. Mild exacerbation of COPD DDX aspiration pneumonia. Not on home oxygen Chest x-ray taken on 04/12 was normal. Received 2 doses of azithromycin to 250 mg consider continuing -DuoNeb scheduled every 6 hr while awake (5) Acquired pancytopenia Code(s): D61.818 - Other pancytopenia Status: Resolved Plan: Decreased platelets and white blood cell possibly due to alcohol, nutrition, B12 /folate. Mild neutropenia. No fevers recorded -Labs: CBC, Improving -Consider peripheral smear (6) Suicidal ideation Code(s): R45.851 - Suicidal ideations Status: Acute Plan: During hospitalization according to chart review, patient stated he wanted to drink himself to . Denies any current suicidal or homicidal ideations Psychiatry primary team Anticipate discharge today once patient is not requiring Ativan for withdrawal symptoms Chan act lifted by psychiatry team Patient medically clear by medicine team (7) Nutrition, metabolism, and development symptoms Code(s): R63.8 - Other symptoms and signs concerning food and fluid intake Status: Acute Plan: Diet: Regular, folic acid, thiamine, multivitamin Electrolytes: Replete as needed DVT prophylaxis: SCDs and ambulation Disposition: Unknown at this time <Gerard Link - 04/13/18 16:10> - Attending Attestation The exam, history, and the medical decision-making described in the above note were completed with the assistance of the resident physician. I reviewed and agree with the findings presented. I attest that I had a [id number] encounter with the patient on the same day, and personally performed and documented my assessment and findings in the medical record. He is much improved from the standpoint of alcohol withdrawal. He is cleared by psychiatry for discharge and Chan Act is lifted. We discussed post discharge plans at length. Case management has worked with him regarding outpatient rehab options. Recommend outpatient rehab for both alcohol and heroin abuse. May benefit from methadone or buprenorphine for opioid addiction. Needs extensive mental health counseling to help him with substance abuse. <Franklin Bhatti - 04/13/18 22:25>
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
== END 2018-04-13 12:20 | disposition home or self-care (01) ==
LOC: H4EA 15:00
PROVIDERS: ADMIT Student in an Organized Health Care Education/Training Program; ATTEND Student in an Organized Health Care Education/Training Program